=== PATIENT | female | born 1965 | race Hispanic/Latino ===

== ENCOUNTER 2016-06-25 16:00 | Emergency (ER) | payer SELFPAY ==
[2016-06-25] MEDS ORDERED: D50W (25GM) IV ONE ×3 (16:06→17:00)
[2016-06-25] MEDS ORDERED: GLUCAGEN ONE (16:06)
[2016-06-25] MEDS ORDERED: ATIVAN ONE (16:19)
[2016-06-25] MEDS ORDERED: ATIVAN IV ONE (16:36)
[2016-06-25 17:11] VITALS: BP 148/88
--- NOTE | 2016-06-25 19:23 | Emergency Department Report ---
ED General Adult HPI - General Chief complaint: Hypoglycemia Stated complaint: AMS Time Seen by Provider: 06/25/16 19:15 Source: family Mode of arrival: Ambulatory Limitations: Altered Mental Status - History of Present Illness Initial comments: This is a pleasant 51-year-old female who was brought into the ED due to mental status changes. Her indicates that they were coming home from a podiatry appointment when the noted her to have somewhat tight position she took with her arms across her chest and she became nonverbal. She still had her eyes open but was not able to focus correctly on him nor respond to questions. He decided to drive directly to our ED. He wasn't patient was noted to have a blood sugar less than 40. She was an IV placed and was given 2 A of D50. She immediately had return to us her baseline. The patient indicates that she woke up earlier than typical this morning and had a early breakfast. She did not get out of the doctor's office still after 3 PM. She states that she feels this is reasonable Y she became hypoglycemic. She denies any complaints at this time. -: Sudden Severity scale (0 -10): 0 Improves with: other (d50) Worsens with: none Associated Symptoms: denies: chest pain, cough Treatments Prior to Arrival: none - Related Data Home Medications Medication Instructions Recorded Confirmed Last Taken carBAMazepine [TEGretol] 200 mg PO QAM 08/22/14 06/25/16 06/25/16 carBAMazepine [TEGretol] 400 mg PO HS 08/22/14 06/25/16 06/24/16 glyBURIDE [Diabeta] 10 mg PO QDAY 08/01/15 06/25/16 06/25/16 Insulin Aspart Protam & Aspart 20 unit SQ BIDDIAB 06/25/16 06/25/16 06/25/16 [Novolog Mix 70-30 Flexpen Syrn] Allergies Allergy/AdvReac Type Severity Reaction Status Date / Time codeine Allergy Unknown Verified 01/26/16 20:44 ED Review of Systems ROS: Stated complaint: AMS Other details as noted in HPI Comment: All other systems reviewed and negative Constitutional: denies: chills, fever Eyes: denies: eye pain, eye discharge, vision change ENT: denies: ear pain, throat pain Respiratory: denies: cough, shortness of breath, wheezing Cardiovascular: denies: chest pain, palpitations Endocrine: no symptoms reported Gastrointestinal: denies: abdominal pain, nausea, diarrhea Genitourinary: denies: urgency, dysuria, discharge Musculoskeletal: other (neuropathy of feet). denies: back pain, joint swelling , arthralgia Skin: denies: rash, lesions Neurological: denies: headache, weakness, paresthesias Psychiatric: denies: anxiety, depression Hematological/Lymphatic: denies: easy bleeding, easy bruising ED Past Medical Hx - Past Medical History Previous Medical History?: Yes Hx Hypertension: No Hx CVA: No Hx Heart Attack/AMI: No Hx Congestive Heart Failure: No Hx Diabetes: Yes Hx Deep Vein Thrombosis: No Hx Pulmonary Embolism: No Hx GERD: No Hx Liver Disease: No Hx Renal Disease: No Hx Sickle Cell Disease: No Hx Arthritis: No Hx Headaches / Migraines: No Hx Seizures: Yes Hx Kidney Stones: No Hx Psychiatric Treatment: No Hx Asthma: No Hx COPD: No Hx Tuberculosis: No Hx Dementia: No Hx HIV: No - Surgical History Past Surgical History?: Yes Hx Coronary Stent: No Hx Open Heart Surgery: No Hx Pacemaker: No Hx Internal Defibrillator: No Hx Cholecystectomy: No Hx Appendectomy: No Hx Breast Surgery: No Additional Surgical History: x 2 - Social History Smoking Status: Current Every Day Smoker Substance Use Type: Other - Medications Home Medications: Home Medications Medication Instructions Recorded Confirmed Last Taken Type carBAMazepine [TEGretol] 200 mg PO QAM 08/22/14 06/25/16 06/25/16 History carBAMazepine [TEGretol] 400 mg PO HS 08/22/14 06/25/16 06/24/16 History glyBURIDE [Diabeta] 10 mg PO QDAY 08/01/15 06/25/16 06/25/16 History Insulin Aspart Protam & Aspart 20 unit SQ BIDDIAB 06/25/16 06/25/16 06/25/16 History [Novolog Mix 70-30 Flexpen Syrn] ED Physical Exam - General Limitations: Altered Mental Status General appearance: alert, in no apparent distress - Head Head exam: Present: atraumatic, normocephalic - Eye Eye exam: Present: normal appearance, EOMI. Absent: scleral icterus - ENT ENT exam: Present: normal exam, normal orophraynx, mucous membranes moist - Neck Neck exam: Present: normal inspection, full ROM. Absent: tenderness, meningismus, lymphadenopathy - Respiratory Respiratory exam: Present: normal lung sounds bilaterally. Absent: respiratory distress, wheezes, rales - Cardiovascular Cardiovascular Exam: Present: regular rate, normal rhythm. Absent: systolic murmur, diastolic murmur, rubs, gallop - GI/Abdominal GI/Abdominal exam: Present: soft, normal bowel sounds. Absent: tenderness, guarding - Extremities Exam Extremities exam: Present: normal inspection. Absent: tenderness, pedal edema, calf tenderness - Back Exam Back exam: Present: normal inspection. Absent: tenderness, CVA tenderness (R), CVA tenderness (L) - Neurological Exam Neurological exam: Present: alert, oriented X3, normal gait - Psychiatric Psychiatric exam: Present: normal affect, normal mood - Skin Skin exam: Present: warm, dry, intact, normal color. Absent: rash ED Course Vital Signs 06/25/16 06/25/16 06/25/16 16:17 16:35 16:47 Temperature 98.5 F 98.9 F Pulse Rate 107 H 83 Respiratory 16 22 20 Rate Blood Pressure 140/61 Blood Pressure 150/79 [Left] O2 Sat by Pulse 100 100 Oximetry 06/25/16 17:09 Temperature Pulse Rate 81 Respiratory 16 Rate Blood Pressure Blood Pressure 148/88 [Left] O2 Sat by Pulse 97 Oximetry - Reevaluation(s) Reevaluation #1: 06/25/16 23:39 Patient has had a meal. She's had her sugars checked. They continue to be appropriate. She's been here for several hours now. I feel that she'll continue to be appropriate. The story sounds very consistent with hypoglycemia due to poor caloric intake from prolonged period of fasting. I did encourage her to continue on the same dose of glyburide but just to be sure that she is taking her meals regularly. Patient agrees to do this otherwise stable for home she will be with her julieta. Critical care attestation.: If time is entered above; I have spent that time in minutes in the direct care of this critically ill patient, excluding procedure time. ED Disposition Clinical Impression: Hypoglycemia Disposition: DISCHARGED TO HOME OR SELFCARE Is pt being admited?: No Does the pt Need Aspirin: No Condition: Stable Instructions: Diabetic Hypoglycemia (ED) Additional Instructions: Continue with your current glyburide dose. Eat your meals regularly. Return if worsening. Referrals: PRIMARY CARE, [Primary Care Provider] - 3-5 Days Time of Disposition: 19:24
== END 2016-06-25 20:30 | disposition home or self-care (01) ==
LOC: ED 16:00
DX: E11.649 Type 2 diabetes mellitus with hypoglycemia without coma (principal); R56.9 Unspecified convulsions; F17.200 Nicotine dependence, unspecified, uncomplicated; Z88.5 Allergy status to narcotic agent
CPT/HCPCS: 82962; 96374; 96375; 99283; J2060; J1610

== ENCOUNTER 2016-11-20 22:39 | Emergency (ER) | payer SELFPAY ==
[2016-11-21 03:20] LABS: Creatine Kinase MB 2.9 ng/mL (0.0-4.0)
[2016-11-21 03:21] LABS: Anion Gap 20 mmol/L; BUN/Creatinine Ratio 17.77; Blood Urea Nitrogen 16 mg/dL (7-17); Calcium 9.3 mg/dL (8.4-10.2); Carbon Dioxide 27 mmol/L (22-30); Chloride 96.8 mmol/L (98-107); Creatine Kinase 99 units/L (30-135); Glucose 182 mg/dL (65-100); Potassium 4.2 mmol/L (3.6-5.0); Sodium 140 mmol/L (137-145)
[2016-11-21 03:23] LABS: Eosinophils % (Auto) 0.2 % (0.0-4.3); Hematocrit 47.9 % (30.3-42.9); Hemoglobin 16.7 gm/dl (10.1-14.3); Mean Corpuscular HGB Conc 35 % (30-34); Mean Corpuscular Hemoglobin 34 pg (28-32); Mean Corpuscular Volume 98 fl (79-97); Platelet Count 152 K/mm3 (140-440); Red Blood Count 4.88 M/mm3 (3.65-5.03); Red Cell Distribution Width 13.4 % (13.2-15.2); White Blood Count 8.9 K/mm3 (4.5-11.0)
[2016-11-21 03:29] VITALS: BP 143/76
[2016-11-21 03:29] LABS: INR 0.94 (0.87-1.13)
[2016-11-21 03:30] LABS: Partial Thromboplastin Time 31.6 Sec. (24.2-36.6)
[2016-11-21 03:54] LABS: Erythrocyte Sedimentation Rate TNR mm/Hr (0-20)
[2016-11-21] MEDS ORDERED: NEURONTIN PO ONE (06:35)
[2016-11-21] MEDS ORDERED: TORADOL IM ONE (06:35)
--- NOTE | 2016-11-21 07:07 | Emergency Department Report ---
ED Lower Extremity HPI - General Chief Complaint: Extremity Problem,Nontraumatic Stated Complaint: NUMBNESS IN LEGS AND FEET Time Seen by Provider: 11/21/16 06:16 Source: patient Mode of arrival: Ambulatory Limitations: No Limitations - History of Present Illness Initial Comments: 51-year-old female with a past medical history of seizures and diabetes presents to the hospital complaints of bilateral feet pain times greater than one month. Pain described as a numbness radius extensor tendon intensity. Worse with palpation. No alleviating factors. Patient denies a previous diagnosis of neuropathy. No recent trauma, fevers, redness, or warmth reported. PMD: [facility] - Related Data Home Medications Medication Instructions Recorded Confirmed Last Taken carBAMazepine [TEGretol] 200 mg PO QAM 08/22/14 06/25/16 06/25/16 carBAMazepine [TEGretol] 400 mg PO HS 08/22/14 06/25/16 06/24/16 glyBURIDE [Diabeta] 10 mg PO QDAY 08/01/15 06/25/16 06/25/16 Insulin Aspart Protam & Aspart 20 unit SQ BIDDIAB 06/25/16 06/25/16 06/25/16 [Novolog Mix 70-30 Flexpen Syrn] Previous Rx's Medication Instructions Recorded Last Taken Type Gabapentin [Neurontin] 300 mg PO Q8HR #90 capsule 11/21/16 Unknown Rx Naproxen [Naprosyn TAB] 375 mg PO BID #30 tablet 11/21/16 Unknown Rx Allergies Allergy/AdvReac Type Severity Reaction Status Date / Time codeine Allergy Unknown Verified 01/26/16 20:44 ED Review of Systems ROS: Stated complaint: NUMBNESS IN LEGS AND FEET Other details as noted in HPI Comment: All other systems reviewed and negative Other: Constitutional: No fevers chills Eyes: No eye pain visual changes or discharge ENT: No ear pain or throat pain Neck: Denies pain Respiratory: Denies cough wheezing shortness of breath Cardiovascular: Denies chest pain, palpitations, syncope GI: Denies abdominal pain, nausea, vomiting, diarrhea : Denies dysuria Musculoskeletal: as per hpi Skin: Denies rash, lesions, erythema Neurologic: Denies headache, weakness Psychiatric: Denies suicidal ideation, hallucinations ED Past Medical Hx - Past Medical History Hx Hypertension: No Hx CVA: No Hx Heart Attack/AMI: No Hx Congestive Heart Failure: No Hx Diabetes: Yes Hx Deep Vein Thrombosis: No Hx Pulmonary Embolism: No Hx GERD: No Hx Liver Disease: No Hx Renal Disease: No Hx Sickle Cell Disease: No Hx Arthritis: No Hx Headaches / Migraines: No Hx Seizures: Yes Hx Kidney Stones: No Hx Psychiatric Treatment: No Hx Asthma: No Hx COPD: No Hx Tuberculosis: No Hx Dementia: No Hx HIV: No - Surgical History Hx Coronary Stent: No Hx Open Heart Surgery: No Hx Pacemaker: No Hx Internal Defibrillator: No Hx Cholecystectomy: No Hx Appendectomy: No Hx Breast Surgery: No Additional Surgical History: x 2 - Social History Smoking Status: Current Every Day Smoker Substance Use Type: None - Medications Home Medications: Home Medications Medication Instructions Recorded Confirmed Last Taken Type carBAMazepine [TEGretol] 200 mg PO QAM 08/22/14 06/25/16 06/25/16 History carBAMazepine [TEGretol] 400 mg PO HS 08/22/14 06/25/16 06/24/16 History glyBURIDE [Diabeta] 10 mg PO QDAY 08/01/15 06/25/16 06/25/16 History Insulin Aspart Protam & Aspart 20 unit SQ BIDDIAB 06/25/16 06/25/16 06/25/16 History [Novolog Mix 70-30 Flexpen Syrn] Gabapentin [Neurontin] 300 mg PO Q8HR #90 capsule 11/21/16 Unknown Rx Naproxen [Naprosyn TAB] 375 mg PO BID #30 tablet 11/21/16 Unknown Rx ED Physical Exam - General Limitations: No Limitations - Other Other exam information: General: No limitations, patient is alert in no acute distress Head exam: Atraumatic, normocephalic Eyes exam: Normal appearance, pupils equal reactive to light, extraocular movements intact ENT: Moist mucous membrane, normal oropharynx Neck exam: Normal inspection, full range of motion, no meningismus nontender Respiratory exam: Clear to auscultation bilateral, no wheezes, rales, crackles Cardiovascular: Normal rate and rhythm, normal heart sounds Abdomen: Soft, nondistended, and nontender, with normal bowel sounds, no rebound, or guarding Extremity: Full range of motion normal inspection no deformity, 2+ DP pulse, pain to palpation to right foot diffusely with palpation. No calf tenderness or edema Back: Normal Inspection, full range of motion, no tenderness Neurologic: Alert, oriented x3, cranial nerves intact, no motor or sensory deficit Psychiatric: normal affect, normal mood Skin: Warm, dry, intact ED Course Vital Signs 11/20/16 11/21/16 11/21/16 22:52 03:28 06:00 Temperature 98.4 F Pulse Rate 81 78 Respiratory 16 18 18 Rate Blood Pressure 129/76 143/76 O2 Sat by Pulse 93 98 Oximetry ED Lower Extremity MDM - Lab Data Result diagrams: 11/21/16 02:35 11/21/16 02:35 Lab Results 11/21/16 11/21/16 11/21/16 Range/Units 02:35 02:35 02:35 WBC 8.9 (4.5-11.0) K/mm3 RBC 4.88 (3.65-5.03) M/mm3 Hgb 16.7 H (10.1-14.3) gm/dl Hct 47.9 H (30.3-42.9) % MCV 98 H (79-97) fl MCH 34 H (28-32) pg MCHC 35 H (30-34) % RDW 13.4 (13.2-15.2) % Plt Count 152 (140-440) K/mm3 Lymph % (Auto) 28.8 (13.4-35.0) % Starke % (Auto) 7.2 (0.0-7.3) % Eos % (Auto) 0.2 (0.0-4.3) % Baso % (Auto) 1.0 (0.0-1.8) % Lymph # 2.6 (1.2-5.4) K/mm3 Starke # 0.6 (0.0-0.8) K/mm3 Eos # 0.0 (0.0-0.4) K/mm3 Baso # 0.1 (0.0-0.1) K/mm3 Seg Neutrophils % 62.8 (40.0-70.0) % Seg Neutrophils # 5.6 (1.8-7.7) K/mm3 ESR TNR PT (12.2-14.9) Sec. INR (0.87-1.13) APTT (24.2-36.6) Sec. Sodium 140 (137-145) mmol/L Potassium 4.2 (3.6-5.0) mmol/L Chloride 96.8 L (98-107) mmol/L Carbon Dioxide 27 (22-30) mmol/L Anion Gap 20 mmol/L BUN 16 (7-17) mg/dL Creatinine 0.9 (0.7-1.2) mg/dL Estimated GFR > 60 ml/min BUN/Creatinine Ratio 17.77 % Glucose 182 H (65-100) mg/dL Lactic Acid 1.50 (0.7-2.0) mmol/L Calcium 9.3 (8.4-10.2) mg/dL Total Creatine Kinase 99 (30-135) units/L CK-MB (CK-2) 2.9 (0.0-4.0) ng/mL CK-MB (CK-2) Rel Index 2.9 (0-4) C-Reactive Protein 1.90 H (0.00-1.30) mg/dL NT-Pro-B Natriuret Pep 64.77 (0-900) pg/mL 11/21/16 Range/Units 02:35 WBC (4.5-11.0) K/mm3 RBC (3.65-5.03) M/mm3 Hgb (10.1-14.3) gm/dl Hct (30.3-42.9) % MCV (79-97) fl MCH (28-32) pg MCHC (30-34) % RDW (13.2-15.2) % Plt Count (140-440) K/mm3 Lymph % (Auto) (13.4-35.0) % Starke % (Auto) (0.0-7.3) % Eos % (Auto) (0.0-4.3) % Baso % (Auto) (0.0-1.8) % Lymph # (1.2-5.4) K/mm3 Starke # (0.0-0.8) K/mm3 Eos # (0.0-0.4) K/mm3 Baso # (0.0-0.1) K/mm3 Seg Neutrophils % (40.0-70.0) % Seg Neutrophils # (1.8-7.7) K/mm3 ESR PT 12.5 (12.2-14.9) Sec. INR 0.94 (0.87-1.13) APTT 31.6 (24.2-36.6) Sec. Sodium (137-145) mmol/L Potassium (3.6-5.0) mmol/L Chloride (98-107) mmol/L Carbon Dioxide (22-30) mmol/L Anion Gap mmol/L BUN (7-17) mg/dL Creatinine (0.7-1.2) mg/dL Estimated GFR ml/min BUN/Creatinine Ratio % Glucose (65-100) mg/dL Lactic Acid (0.7-2.0) mmol/L Calcium (8.4-10.2) mg/dL Total Creatine Kinase (30-135) units/L CK-MB (CK-2) (0.0-4.0) ng/mL CK-MB (CK-2) Rel Index (0-4) C-Reactive Protein (0.00-1.30) mg/dL NT-Pro-B Natriuret Pep (0-900) pg/mL - Medical Decision Making I suspect the patient has diabetic neuropathy since she complains of bilateral foot pain that has been spreading caudally. Patient will be prescribed Neurontin and then inserted for pain. Outpatient follow-up for be encouraged - Differential Diagnosis PAD, PVD, neuropathy, radiculopathy Critical Care Time: No Critical care attestation.: If time is entered above; I have spent that time in minutes in the direct care of this critically ill patient, excluding procedure time. ED Disposition Clinical Impression: Diabetic neuropathy Disposition: DC-01 TO HOME OR SELFCARE Is pt being admited?: No Does the pt Need Aspirin: No Condition: Stable Instructions: Diabetes Mellitus Type 2 in Adults (ED), Diabetic Neuropathy (ED) Additional Instructions: Take the medication as prescribed. Follow up with her doctor for further management. Return if symptoms worsen. Prescriptions: Gabapentin [Neurontin] 300 mg PO Q8HR #90 capsule Naproxen [Naprosyn TAB] 375 mg PO BID #30 tablet Referrals: PRIMARY CARE, [Primary Care Provider] - 3-5 Days Time of Disposition: 07:13
== END 2016-11-21 08:12 | disposition home or self-care (01) ==
LOC: ED 22:39
DX: E11.40 Type 2 diabetes mellitus with diabetic neuropathy, unspecified (principal); F17.200 Nicotine dependence, unspecified, uncomplicated; Z79.4 Long term (current) use of insulin; Z88.6 Allergy status to analgesic agent
CPT/HCPCS: 36415; 80048; 82140; 82550; 82553; 83880; 85025; 85610; 85652; 85730; 86140; 96372; 99283; J1885

== ENCOUNTER 2018-11-08 18:28 | Observation (INO) | payer OTHER ==
[2018-11-08 19:54] LABS: Basophils # (Auto) 0.1 K/mm3 (0.0-0.1); Basophils % (Auto) 1.3 % (0.0-1.8); Eosinophils % (Auto) 0.9 % (0.0-4.3); Hematocrit 43.7 % (30.3-42.9); Lymphocytes # (Auto) 1.5 K/mm3 (1.2-5.4); Lymphocytes % (Auto) 37.8 % (13.4-35.0); Mean Corpuscular HGB Conc 34 % (30-34); Mean Corpuscular Volume 101 fl (79-97); Monocytes # (Auto) 0.3 K/mm3 (0.0-0.8); Monocytes % (Auto) 8.5 % (0.0-7.3); Platelet Count 144 K/mm3 (140-440); Red Blood Count 4.31 M/mm3 (3.65-5.03); Red Cell Distribution Width 13.5 % (13.2-15.2)
[2018-11-08 20:23] LABS: Alanine Aminotransferase 21 units/L (7-56); Albumin 3.5 g/dL (3.9-5); BUN/Creatinine Ratio 14; Blood Urea Nitrogen 14 mg/dL (7-17); Calcium 8.6 mg/dL (8.4-10.2); Hemolysis Index 18
--- NOTE | 2018-11-08 20:37 | Emergency Department Report ---
HPI - General Chief Complaint: Altered Mental Status Time Seen by Provider: 11/08/18 18:58 - HPI HPI: 53-year-old female presents to the emergency department by EMS from home with what appears to be altered mental status and a syncopal episode. She has a past medical history of non-insulin depended diabetes, hyperlipidemia, hypertension, chronic osteoarthritis and seizures. The patient currently is living with her ex-. Apparently the patient went into her home and was saying that she wanted to go to [facility] when she passed out and became unresponsive. EMS arrived and gave the patient 2 mg of Narcan and the patient appeared to have some type of a response but does go back to sleep. Since my examination in the emergency department, the patient is easily arousable but does have some confusion. She is currently AAO [address] but not time. She is a very poor historian and some of this information and has also be en provided by her daughter, who is now at bedside. The daughter says that she will sometimes have some "blackout spells." ED Past Medical Hx - Past Medical History Previous Medical History?: Yes Hx Hypertension: No Hx CVA: No Hx Heart Attack/AMI: No Hx Congestive Heart Failure: No Hx Diabetes: Yes Hx Deep Vein Thrombosis: No Hx Pulmonary Embolism: No Hx GERD: No Hx Liver Disease: No Hx Renal Disease: No Hx Sickle Cell Disease: No Hx Arthritis: No Hx Headaches / Migraines: No Hx Seizures: Yes Hx Kidney Stones: No Hx Psychiatric Treatment: No Hx Asthma: No Hx COPD: No Hx Tuberculosis: No Hx Dementia: No Hx HIV: No - Surgical History Hx Coronary Stent: No Hx Open Heart Surgery: No Hx Pacemaker: No Hx Internal Defibrillator: No Hx Cholecystectomy: No Hx Appendectomy: No Hx Breast Surgery: No Additional Surgical History: x 2 - Social History Smoking Status: Current Every Day Smoker Substance Use Type: None - Medications Home Medications: Home Medications Medication Instructions Recorded Confirmed Last Taken Type carBAMazepine [TEGretol] 200 mg PO QAM 08/22/14 06/25/16 06/25/16 History carBAMazepine [TEGretol] 400 mg PO HS 08/22/14 06/25/16 06/24/16 History glyBURIDE [Diabeta] 10 mg PO QDAY 08/01/15 06/25/16 06/25/16 History Insulin Aspart Protam & Aspart 20 unit SQ BIDDIAB 06/25/16 06/25/16 06/25/16 History [Novolog Mix 70-30 Flexpen Syrn] Gabapentin [Neurontin] 300 mg PO Q8HR #90 capsule 11/21/16 Unknown Rx Naproxen [Naprosyn TAB] 375 mg PO BID #30 tablet 11/21/16 Unknown Rx Naproxen 500 mg PO Q12H PRN #20 tablet 08/02/18 Unknown Rx ED Review of Systems ROS: Stated complaint: AMS Other details as noted in HPI Comment: Unobtainable due to pts medical conditions Cardiovascular: syncope Physical Exam - Physical Exam Vital Signs: Vital Signs 11/08/18 11/08/18 18:39 18:52 Temperature 97.7 F Pulse Rate 74 79 Respiratory 16 12 Rate Blood Pressure 136/77 Blood Pressure 114/78 [Left] O2 Sat by Pulse 94 94 Oximetry Physical Exam: GENERAL: The patient is well-developed well-nourished. HENT: Normocephalic. Atraumatic. Patient has moist mucous membranes. EYES: Extraocular motions are intact. Pupils equal reactive to light bilaterally. NECK: Supple. Trachea is midline. CHEST/LUNGS: Clear to auscultation. There is no respiratory distress noted. HEART/CARDIOVASCULAR: Regular. There is no tachycardia. There is no murmur. ABDOMEN: Abdomen is soft, nontender. Patient has normal bowel sounds. There is no abdominal distention. SKIN: Skin is warm and dry. NEURO: Patient is sleepy but is easily arousable. Once awake she is cooperative but confused. The patient has normal speech. CN II - XII grossly intact. MUSCULOSKELETAL: There is no tenderness or deformity. There is no evidence of acute injury. PSYCH: Patient is emotionally labile. ED Course Vital Signs 11/08/18 11/08/18 18:39 18:52 Temperature 97.7 F Pulse Rate 74 79 Respiratory 16 12 Rate Blood Pressure 136/77 Blood Pressure 114/78 [Left] O2 Sat by Pulse 94 94 Oximetry ED Medical Decision Making - Lab Data Result diagrams: 11/08/18 19:39 11/08/18 19:39 - EKG Data -: EKG Interpreted by Me EKG shows normal: sinus rhythm (APC), axis, intervals, QRS complexes (Low voltage), ST-T waves Rate: normal - EKG Data When compared to previous EKG there are: previous EKG unavailable Interpretation: normal EKG (with PACs and low voltage) - Radiology Data Radiology results: report reviewed, image reviewed interpreted by me: X-ray of the sacrum and coccyx does not show any fracture, dislocation or any acute process. CT HEAD WITHOUT CONTRAST HISTORY: Altered mental status COMPARISON: None TECHNIQUE: CT imaging of the head was performed in the axial, sagittal, and coronal projections and bone algorithm in axial projection in the soft tissue algorithm. All CT scans at this location are performed using CT dose reduction for ALARA by means of automated exposure control. CONTRAST: None. FINDINGS: Cerebral and Cerebellar Hemispheres: No evidence of mass or mass effect. No midline shift. No acute hemorrhage. No acute cortical infarction. No extra-axial fluid collection. Ventricles: Normal in size and configuration for age. Osseous Structures: No significant abnormality. Visualized Paranasal Sinuses: No significant abnormality. Additional Findings: None IMPRESSION: 1. No acute intracranial abnormality. - Medical Decision Making This patient presents to the emergency department after having a syncopal and unresponsive episode. Since being in the emergency department, the patient does appear sleepy and altered but is easily arousable. The patient is cooperative. She does not appear to have any motor or sensory deficits and her cranial nerves are intact. CT scan of the head without contrast did not show any bleed, shift, mass, ischemia, or any other acute process. The patient later started complaining of some tailbone pain so an x-ray was done of the sacrum and coccyx that also did not show any fracture, dislocation, or any other acute process. The patient's labs are essentially unremarkable and do not show any etiology of the patient's symptoms. Family says there has been some recent decline in her mental and physical health. They also informed me that there could be some type of an emotional or psychiatric component as she is currently going through a separation/divorce and she is still living with her ex-, who is currently in a new relationship. The patient does display some emotional lability and will start crying very easily. Her vital signs and stable throughout her ED course. The patient will be admitted to the hospital for further evaluation and treatment and was accepted for admission by the hospitalist, Dr. Hu. - Differential Diagnosis TIA, CVA, Substance abuse, Dysrythmia, Conversion Disorder Critical Care Time: No Critical care attestation.: If time is entered above; I have spent that time in minutes in the direct care of this critically ill patient, excluding procedure time. ED Disposition Clinical Impression: Encephalopathy Altered mental status Qualifiers: Altered mental status type: unspecified Qualified Code(s): R41.82 - Altered mental status, unspecified Syncope Qualifiers: Syncope type: unspecified Qualified Code(s): R55 - Syncope and collapse Disposition: DC-09 OP ADMIT IP TO THIS HOSP Is pt being admited?: Yes Condition: Fair Time of Disposition: 00:51
--- NOTE | 2018-11-08 20:44 | Cat Scan Report ---
CT HEAD WITHOUT CONTRAST HISTORY: Altered mental status COMPARISON: None TECHNIQUE: CT imaging of the head was performed in the axial, sagittal, and coronal projections and bone algori thm in axial projection in the soft tissue algorithm. All CT scans at this location are performed using CT dose reduction for ALARA by means of automated e xposure control. CONTRAST: None. FINDINGS: Cerebral and Cerebellar Hemispheres: No evidence of mass or mass effect. No midline shift. No acute hemorrhage. No acute cortical infarction. No extra-axial fluid collection. Ventricles: Normal in size and configuration for age. Osseous Structures: No significant abnormality. Visualized Paranasal Sinuses: No significant abnormality. Additional Findings: None IMPRESSION: 1. No acute intracranial abnormality. NOTE: Acute infarct may not be visible by noncontrast CT. Signer Name: William Trevino MD Signed: 11/08/2018 8:39 PM Workstation Name: [id number]
[2018-11-08 21:18] LABS: Bilirubin,Urine NEG (Negative); Blood,Urine MOD (Negative); Color,Urine Yellow (Yellow); Mucus,Urine FEW /HPF; Protein,Urine <15 mg/dL mg/dL (Negative); Urobilinogen,Urine < 2.0 mg/dL (<2.0)
[2018-11-08 21:19] LABS: Amphetamine Screen,Urine PRESUMPTIVE NEGATIVE; Benzodiazepines Screen,Urine PRESUMPTIVE NEGATIVE; Cannabinoid Screen,Urine PRESUMPTIVE NEGATIVE; Cocaine Screen,Urine PRESUMPTIVE NEGATIVE; Methadone Screen,Urine PRESUMPTIVE NEGATIVE; Opiate Screen,Urine PRESUMPTIVE NEGATIVE
[2018-11-08] MEDS ORDERED: ZOFRAN IV PRN (22:30)
[2018-11-08] MEDS ORDERED: TYLENOL PO PRN (22:30)
[2018-11-08] MEDS ORDERED: SODIUM CHLORIDE FLUSH SYRINGE 10 ML IV PRN (22:30)
--- NOTE | 2018-11-08 22:45 | History and Physical Report ---
History of Present Illness Date of examination: 11/08/18 Chief complaint: Syncope per report History of present illness: Patient is a 53-year-old female with history of diabetes mellitus type 2 and seizure disorder who was brought to the ED via EMS on account of a syncopal episode. Of note, patient does not remember what happened or why she's here and was unable to give a good history. It was reported that patient had a witnessed syncope by family members who called 911. No reported history of seizure activity. When EMS arrived, the patient was given 2 mg of Narcan and she appeared to have some type of a response but did go back to sleep. She complained of pain in her feet and and buttock. She denies chest pain, sob, cough, headaches, fever or chills. Past History Past Medical History: arthritis, diabetes, hypertension, hyperlipidemia, seizures Past Surgical History: , Other (clavicular surgery) Social history: smoking (she has 20 years history of cigarette smoking. She currently smokes 1 pack per day. She denies alcohol or illicit drug use) Family history: other (A brother from suicide. No known family history of hypertension, diabetes or heart disease) Medications and Allergies Allergies Allergy/AdvReac Type Severity Reaction Status Date / Time codeine Allergy Unknown Verified 01/26/16 20:44 Home Medications Medication Instructions Recorded Confirmed Last Taken Type carBAMazepine [TEGretol] 200 mg PO QAM 08/22/14 06/25/16 06/25/16 History carBAMazepine [TEGretol] 400 mg PO HS 08/22/14 06/25/16 06/24/16 History glyBURIDE [Diabeta] 10 mg PO QDAY 08/01/15 06/25/16 06/25/16 History Insulin Aspart Protam & Aspart 20 unit SQ BIDDIAB 06/25/16 06/25/16 06/25/16 History [Novolog Mix 70-30 Flexpen Syrn] Gabapentin [Neurontin] 300 mg PO Q8HR #90 capsule 11/21/16 Unknown Rx Naproxen [Naprosyn TAB] 375 mg PO BID #30 tablet 11/21/16 Unknown Rx Naproxen 500 mg PO Q12H PRN #20 tablet 08/02/18 Unknown Rx Active Meds: Active Medications Acetaminophen (Tylenol) 650 mg PO Q4H PRN PRN Reason: Pain MILD(1-3)/Fever >100.5/HILL Enoxaparin Sodium (Lovenox) 40 mg SUB-Q QDAY REYES Sodium Chloride (Nacl 0.9% 1000 Ml) 1,000 mls @ 100 mls/hr IV DIRECT REYES Ondansetron HCl (Zofran) 4 mg IV Q8H PRN PRN Reason: Nausea And Vomiting Sodium Chloride (Sodium Chloride Flush Syringe 10 Ml) 10 ml IV BID REYES Sodium Chloride (Sodium Chloride Flush Syringe 10 Ml) 10 ml IV PRN PRN PRN Reason: LINE FLUSH Review of Systems All systems: negative (all other systems reviewed with the patient and are negative) Exam - Constitutional Vitals: Temp Pulse Resp BP Pulse Ox 97.7 F 79 12 114/78 94 11/08/18 18:39 11/08/18 18:52 11/08/18 18:52 11/08/18 18:52 11/08/18 18:52 General appearance: Present: no acute distress, well-nourished, other (Alert and oriented to person and time only) - EENT Eyes: Present: PERRL, EOM intact ENT: hearing intact, clear oral mucosa - Neck Neck: Present: supple, normal ROM - Respiratory Respiratory effort: normal Respiratory: bilateral: CTA - Cardiovascular Rhythm: regular Heart Sounds: Present: S1 & S2. Absent: rub, click - Extremities Extremities: pulses symmetrical, No edema Peripheral Pulses: within normal limits - Abdominal General gastrointestinal: Present: soft, non-tender, non-distended, normal bowel sounds Female genitourinary: Present: normal - Integumentary Integumentary: Present: clear, warm, dry - Musculoskeletal Musculoskeletal: gait normal, strength equal bilaterally - Psychiatric Psychiatric: appropriate mood/affect, intact judgment & insight - Neurologic Neurologic: CNII-XII intact, moves all extremities Results - Labs CBC & Chem 7: 11/08/18 19:39 11/08/18 19:39 Labs: Laboratory Last Values WBC 3.9 K/mm3 (4.5-11.0) L 11/08/18 19:39 RBC 4.31 M/mm3 (3.65-5.03) 11/08/18 19:39 Hgb 15.0 gm/dl (10.1-14.3) H 11/08/18 19:39 Hct 43.7 % (30.3-42.9) H 11/08/18 19:39 MCV 101 fl (79-97) H 11/08/18 19:39 MCH 35 pg (28-32) H 11/08/18 19:39 MCHC 34 % (30-34) 11/08/18 19:39 RDW 13.5 % (13.2-15.2) 11/08/18 19:39 Plt Count 144 K/mm3 (140-440) 11/08/18 19:39 Lymph % (Auto) 37.8 % (13.4-35.0) H 11/08/18 19:39 [place] % (Auto) 8.5 % (0.0-7.3) H 11/08/18 19:39 Eos % (Auto) 0.9 % (0.0-4.3) 11/08/18 19:39 Baso % (Auto) 1.3 % (0.0-1.8) 11/08/18 19:39 Lymph # 1.5 K/mm3 (1.2-5.4) 11/08/18 19:39 [place] # 0.3 K/mm3 (0.0-0.8) 11/08/18 19:39 Eos # 0.0 K/mm3 (0.0-0.4) 11/08/18 19:39 Baso # 0.1 K/mm3 (0.0-0.1) 11/08/18 19:39 Seg Neutrophils % 51.5 % (40.0-70.0) 11/08/18 19:39 Seg Neutrophils # 2.0 K/mm3 (1.8-7.7) 11/08/18 19:39 Sodium 140 mmol/L (137-145) 11/08/18 19:39 Potassium 3.8 mmol/L (3.6-5.0) 11/08/18 19:39 Chloride 107.7 mmol/L (98-107) H 11/08/18 19:39 Carbon Dioxide 22 mmol/L (22-30) 11/08/18 19:39 14 mmol/L 11/08/18 19:39 BUN 14 mg/dL (7-17) 11/08/18 19:39 1.0 mg/dL (0.7-1.2) 11/08/18 19:39 Estimated GFR 58 ml/min 11/08/18 19:39 14 % 11/08/18 19:39 Glucose 127 mg/dL (65-100) H 11/08/18 19:39 Calcium 8.6 mg/dL (8.4-10.2) 11/08/18 19:39 0.30 mg/dL (0.1-1.2) 11/08/18 19:39 AST 17 units/L (5-40) 11/08/18 19:39 ALT 21 units/L (7-56) 11/08/18 19:39 144 units/L (35-129) H 11/08/18 19:39 58.0 umol/L (25-60) 11/08/18 19:39 < 0.010 ng/mL (0.00-0.029) 11/08/18 19:39 6.5 g/dL (6.3-8.2) 11/08/18 19:39 3.5 g/dL (3.9-5) L 11/08/18 19:39 1.2 % 11/08/18 19:39 TSH 0.505 mlU/mL (0.270-4.200) 11/08/18 19:39 Yellow (Yellow) 11/08/18 20:20 Clear (Clear) 11/08/18 20:20 5.0 (5.0-7.0) 11/08/18 20:20 Ur Specific [place] 1.009 (1.003-1.030) 11/08/18 20:20 <15 mg/dl mg/dL (Negative) 11/08/18 20:20 Neg mg/dL (Negative) 11/08/18 20:20 Neg mg/dL (Negative) 11/08/18 20:20 Mod (Negative) 11/08/18 20:20 Neg (Negative) 11/08/18 20:20 Neg (Negative) 11/08/18 20:20 < 2.0 mg/dL (<2.0) 11/08/18 20:20 Ur Leukocyte Esterase Neg (Negative) 11/08/18 20:20 1.0 /HPF (0.0-6.0) 11/08/18 20:20 1.0 /HPF (0.0-6.0) 11/08/18 20:20 U Epithel Cells (Auto) 4.0 /HPF (0-13.0) 11/08/18 20:20 Few /HPF 11/08/18 20:20 Presumptive negative 11/08/18 20:20 Presumptive negative 11/08/18 20:20 Ur Barbiturates Screen Presumptive negative 11/08/18 20:20 Ur Phencyclidine Scrn Presumptive negative 11/08/18 20:20 Ur Amphetamines Screen Presumptive negative 11/08/18 20:20 U Benzodiazepines Scrn Presumptive negative 11/08/18 20:20 Presumptive negative 11/08/18 20:20 U Marijuana (THC) Screen Presumptive negative 11/08/18 20:20 Disclamer 11/08/18 20:20 Plasma/Serum Alcohol < 0.01 % (0-0.07) 11/08/18 19:39 - Imaging and Cardiology CT Scan - head: report reviewed Assessment and Plan Assessment and plan: Syncope and collapse -Exact cause unknown, may be seizure related -Further evaluation with duplex US and echocardiogram Elevated H/H -Likely hemoconcentration -We'll hydrate patient and monitor levels Mild Leukopenia -We'll monitor level Hypertension -Stable Seizure disorder -we'll resume home medications -Seizure precautions DM2 -Stable -On SSI Osteoarthritis -On PRN analgesics DVT prophylaxis with Lovenox Disposition: Patient will be placed in observation status with plan for discharge if pending tests are negative and pt is clinically stable Time spent: 38 minutes
--- NOTE | 2018-11-08 23:20 | XRay Report ---
SACRUM AND COCCYX 3 VIEWS INDICATION / CLINICAL INFORMATION: Fall with tailbone pain COMPARISON: None available. FINDINGS: BONES / JOINT(S): No acute fracture or subluxation. There is minimal lower lumbar spondylosis. The SI joints are normal. SOFT TISSUES: No significant abnormality. ADDITIONAL FINDINGS: None. IMPRESSION: No acute abnormality is identified. Signer Name: Juan Renteria MD Signed: 11/08/2018 11:16 PM Workstation Name: [id number]
[2018-11-08] MEDS ORDERED: D50W (25GM) Syringe IV PRN (23:41)
[2018-11-08] MEDS ORDERED: NACL 0.9% 1000 ML 1,000 ML IV ONE (23:44)
[2018-11-09] MEDS ORDERED: NACL 0.9% 1000 ML 1,000 ML ONE (00:05)
[2018-11-09] MEDS: TORADOL IV PRN ×2 (01:10→17:57)
[2018-11-09] MEDS: DIFLUCAN PO SCH ×2 (01:10→09:49)
[2018-11-09] MEDS: NACL 0.9% 1000 ML 1,000 ML IV SCH ×2 (01:50→21:23)
[2018-11-09 02:51] LABS: Hematocrit 44.5 % (30.3-42.9); Hemoglobin 15.4 gm/dl (10.1-14.3); Mean Corpuscular HGB Conc 35 % (30-34); Mean Corpuscular Volume 101 fl (79-97); Platelet Count 145 K/mm3 (140-440); Red Cell Distribution Width 13.3 % (13.2-15.2)
[2018-11-09 03:11] LABS: Chol/HDL Ratio 7.88 %
[2018-11-09] MEDS: HumaLOG SUB-Q SCH ×4 (07:57→22:17)
[2018-11-09] MEDS: LOVENOX SUB-Q SCH (09:49)
[2018-11-09] MEDS: SODIUM CHLORIDE FLUSH SYRINGE 10 ML IV SCH ×2 (09:50→22:22)
--- NOTE | 2018-11-09 10:11 | Vascular Lab Report ---
VL carotid duplex BILAT INDICATION / CLINICAL INFORMATION: syncope. COMPARISON: None available. FINDINGS: Only mild plaque formation is demonstrated at the carotid bifurcations. Velocity measurements and wav eform analysis indicate less than 50% stenosis of each internal carotid artery, according to massive criteria. Normal antegrade flow is demonstrated in both vertebral arteries. IMPRESSION: 1. No significant stenosis. Signer Name: Joey Marley MD Signed: 11/09/2018 10:07 AM Workstation Name: [id number]
--- NOTE | 2018-11-09 15:21 | Progress Note ---
Assessment and Plan - Patient Problems (1) Diabetes 1.5, managed as type 2 Current Visit: Yes Status: Acute Plan to address problem: Patient diabetes at present has good control on current insulin. We'll continue current medical therapy. (2) Diabetes Current Visit: Yes Status: Acute Plan to address problem: She is currently being treated with Humalog sliding scale insulin. Checks of been stable. (3) Syncope Current Visit: Yes Status: Acute Qualifiers: Syncope type: unspecified Qualified Code(s): R55 - Syncope and collapse Plan to address problem: Patient with syncopal episode. No prodromal symptoms. Exact etiology unknown at this particular time patient had echocardiogram ejection fraction 55-60%. Patient had carotid Doppler which were negative as well. Patient extensive blood workup to rule out dehydration anemia all negative. Etiology unknown appears to have resolved. No EKG changes. If patient stable in a.m. we'll anticipate discharge. Cardiology for event monitor. (4) Diabetic neuropathy Current Visit: Yes Status: Acute Plan to address problem: Resume gabapentin. (5) Hypertension Current Visit: Yes Status: Acute Plan to address problem: At present patient continues to have fair control of blood pressure. No medical management required at this time. (6) Degenerative joint disease Current Visit: Yes Status: Acute Plan to address problem: [id number] pain control. History Interval history: Patient 53 years old with a history of diabetes seizure disorder had episode of syncope. Apparently witnessed syncope. On name to determine whether this was seizure activity or not. Patient has not had any dizziness or any nausea vomiting no prodromal symptoms today. Hospitalist Physical - Constitutional Vitals: Temp Pulse Resp BP Pulse Ox 98.2 F 61 16 104/48 92 11/09/18 11:18 11/09/18 11:18 11/09/18 11:18 11/09/18 11:18 11/09/18 11:18 General appearance: Present: no acute distress, well-nourished, other (Alert and oriented to person and time only) - EENT Eyes: Present: PERRL, EOM intact ENT: hearing intact, clear oral mucosa, dentition normal, no oropharyngeal erythema, no poor dentition, no thrush - Neck Neck: Present: supple, normal ROM. Absent: enlarged thyroid, masses or JVD, cervical LAD - Respiratory Respiratory: bilateral: CTA - Cardiovascular Rhythm: regular - Extremities Extremities: no ischemia, pulses intact, pulses symmetrical, No edema, normal temperature, normal color Peripheral Pulses: within normal limits - Abdominal General gastrointestinal: soft, non-tender, non-distended, normal bowel sounds - Integumentary Integumentary: Present: clear, warm, dry - Psychiatric Psychiatric: appropriate mood/affect, intact judgment & insight, memory intact - Neurologic Neurologic: CNII-XII intact, moves all extremities Results - Labs CBC & Chem 7: 11/09/18 02:44 11/08/18 19:39 Labs: Laboratory Last Values WBC 4.4 K/mm3 (4.5-11.0) L 11/09/18 02:44 RBC 4.40 M/mm3 (3.65-5.03) 11/09/18 02:44 Hgb 15.4 gm/dl (10.1-14.3) H 11/09/18 02:44 Hct 44.5 % (30.3-42.9) H 11/09/18 02:44 MCV 101 fl (79-97) H 11/09/18 02:44 MCH 35 pg (28-32) H 11/09/18 02:44 MCHC 35 % (30-34) H 11/09/18 02:44 RDW 13.3 % (13.2-15.2) 11/09/18 02:44 Plt Count 145 K/mm3 (140-440) 11/09/18 02:44 Lymph % (Auto) 37.8 % (13.4-35.0) H 11/08/18 19:39 [place] % (Auto) 8.5 % (0.0-7.3) H 11/08/18 19:39 Eos % (Auto) 0.9 % (0.0-4.3) 11/08/18 19:39 Baso % (Auto) 1.3 % (0.0-1.8) 11/08/18 19:39 Lymph # 1.5 K/mm3 (1.2-5.4) 11/08/18 19:39 [place] # 0.3 K/mm3 (0.0-0.8) 11/08/18 19:39 Eos # 0.0 K/mm3 (0.0-0.4) 11/08/18 19:39 Baso # 0.1 K/mm3 (0.0-0.1) 11/08/18 19:39 Seg Neutrophils % 51.5 % (40.0-70.0) 11/08/18 19:39 Seg Neutrophils # 2.0 K/mm3 (1.8-7.7) 11/08/18 19:39 Sodium 140 mmol/L (137-145) 11/08/18 19:39 Potassium 3.8 mmol/L (3.6-5.0) 11/08/18 19:39 Chloride 107.7 mmol/L (98-107) H 11/08/18 19:39 Carbon Dioxide 22 mmol/L (22-30) 11/08/18 19:39 14 mmol/L 11/08/18 19:39 BUN 14 mg/dL (7-17) 11/08/18 19:39 1.0 mg/dL (0.7-1.2) 11/08/18 19:39 Estimated GFR 58 ml/min 11/08/18 19:39 14 % 11/08/18 19:39 Glucose 127 mg/dL (65-100) H 11/08/18 19:39 POC Glucose 128 (70-105) H 11/09/18 11:03 Calcium 8.6 mg/dL (8.4-10.2) 11/08/18 19:39 Magnesium 1.60 mg/dL (1.7-2.3) L 11/09/18 02:44 0.30 mg/dL (0.1-1.2) 11/08/18 19:39 AST 17 units/L (5-40) 11/08/18 19:39 ALT 21 units/L (7-56) 11/08/18 19:39 144 units/L (35-129) H 11/08/18 19:39 58.0 umol/L (25-60) 11/08/18 19:39 < 0.010 ng/mL (0.00-0.029) 11/09/18 02:44 6.5 g/dL (6.3-8.2) 11/08/18 19:39 3.5 g/dL (3.9-5) L 11/08/18 19:39 1.2 % 11/08/18 19:39 Triglycerides 312 mg/dL (2-149) H 11/09/18 02:44 Cholesterol 213 mg/dL (50-199) H 11/09/18 02:44 156 mg/dL (50-130) H 11/09/18 02:44 27 mg/dL (40-59) L 11/09/18 02:44 7.88 % 11/09/18 02:44 TSH 0.505 mlU/mL (0.270-4.200) 11/08/18 19:39 Yellow (Yellow) 11/08/18 20:20 Clear (Clear) 11/08/18 20:20 5.0 (5.0-7.0) 11/08/18 20:20 Ur Specific [place] 1.009 (1.003-1.030) 11/08/18 20:20 <15 mg/dl mg/dL (Negative) 11/08/18 20:20 Neg mg/dL (Negative) 11/08/18 20:20 Neg mg/dL (Negative) 11/08/18 20:20 Mod (Negative) 11/08/18 20:20 Neg (Negative) 11/08/18 20:20 Neg (Negative) 11/08/18 20:20 < 2.0 mg/dL (<2.0) 11/08/18 20:20 Ur Leukocyte Esterase Neg (Negative) 11/08/18 20:20 1.0 /HPF (0.0-6.0) 11/08/18 20:20 1.0 /HPF (0.0-6.0) 11/08/18 20:20 U Epithel Cells (Auto) 4.0 /HPF (0-13.0) 11/08/18 20:20 Few /HPF 11/08/18 20:20 Presumptive negative 11/08/18 20:20 Presumptive negative 11/08/18 20:20 Ur Barbiturates Screen Presumptive negative 11/08/18 20:20 Ur Phencyclidine Scrn Presumptive negative 11/08/18 20:20 Ur Amphetamines Screen Presumptive negative 11/08/18 20:20 U Benzodiazepines Scrn Presumptive negative 11/08/18 20:20 Presumptive negative 11/08/18 20:20 U Marijuana (THC) Screen Presumptive negative 11/08/18 20:20 Disclamer 11/08/18 20:20 Plasma/Serum Alcohol < 0.01 % (0-0.07) 11/08/18 19:39 - Imaging and Cardiology EKG: image reviewed CT Scan - head: report reviewed, image reviewed Venous US: other (carotid Doppler reviewed echocardiogram reviewed.) Active Medications - Current Medications Current Medications: Generic Name Dose Route Start Last Admin Trade Name Freq PRN Reason Stop Dose Admin Acetaminophen 650 mg 11/08/18 22:30 Tylenol PO Q4H PRN Pain MILD(1-3)/Fever >100.5/HILL Dextrose 50 ml 11/08/18 23:41 D50w (25gm) Syringe IV PRN PRN Hypoglycemia Enoxaparin Sodium 40 mg 11/09/18 10:00 11/09/18 09:49 Lovenox SUB-Q 40 mg QDAY REYES Administration Fluconazole 100 mg 11/09/18 00:13 11/09/18 09:49 Diflucan PO 11/16/18 00:12 100 mg QDAY REYES Administration Sodium Chloride 1,000 mls @ 100 mls/hr 11/08/18 23:00 11/09/18 01:50 Nacl 0.9% 1000 Ml IV 100 mls/hr DIRECT REYES Administration Insulin Human Lispro 0 unit 11/09/18 07:30 11/09/18 12:37 Humalog SUB-Q Not Given ACHS REYES Protocol Ketorolac Tromethamine 15 mg 11/08/18 23:42 11/09/18 01:10 Toradol IV 11/13/18 23:41 15 mg Q6H PRN Administration Pain, Mild (1-3) Ondansetron HCl 4 mg 11/08/18 22:30 Zofran IV Q8H PRN Nausea And Vomiting Sodium Chloride 10 ml 11/09/18 10:00 11/09/18 09:50 Sodium Chloride Flush Syringe 10 Ml IV 10 ml BID REYES Administration Sodium Chloride 10 ml 11/08/18 22:30 11/09/18 01:10 Sodium Chloride Flush Syringe 10 Ml IV 10 ml PRN PRN Administration LINE FLUSH
[2018-11-09] MEDS: CEPHULAC PO PRN ×2 (16:23→22:20)
[2018-11-10] MEDS: TORADOL IV PRN (05:18)
[2018-11-10] MEDS: NACL 0.9% 1000 ML 1,000 ML IV SCH (05:25)
[2018-11-10] MEDS: HumaLOG SUB-Q SCH ×3 (08:21→17:47)
[2018-11-10] MEDS: LOVENOX SUB-Q SCH (09:16)
[2018-11-10] MEDS: DIFLUCAN PO SCH (09:16)
[2018-11-10] MEDS: SODIUM CHLORIDE FLUSH SYRINGE 10 ML IV SCH (09:16)
--- NOTE | 2018-11-10 11:36 | Progress Note ---
Assessment and Plan Assessment and plan: 1) Diabetes 1.5, managed as type 2 Current Visit: Yes Status: Acute Plan to address problem: Patient diabetes at present has good control on current insulin. We'll continue current medical therapy. (2) Diabetes Current Visit: Yes Status: Acute Plan to address problem: She is currently being treated with Humalog sliding scale insulin. Checks of been stable. (3) Syncope Current Visit: Yes Status: Acute Qualifiers: Syncope type: unspecified Qualified Code(s): R55 - Syncope and collapse Plan to address problem: Patient with syncopal episode. No prodromal symptoms. Exact etiology unknown at this particular time patient had echocardiogram ejection fraction 55-60%. Patient had carotid Doppler which were negative as well. Patient extensive blood workup to rule out dehydration anemia all negative. Etiology unknown appears to have resolved. No EKG changes. If patient stable in a.m. we'll anticipate discharge. Cardiology for event monitor. (4) Diabetic neuropathy Current Visit: Yes Status: Acute Plan to address problem: Resume gabapentin. (5) Hypertension Current Visit: Yes Status: Acute Plan to address problem: At present patient continues to have fair control of blood pressure. No medical management required at this time. (6) Degenerative joint disease Current Visit: Yes Status: Acute Plan to address problem: [id number] pain control. Hospitalist Physical - Constitutional Vitals: Temp Pulse Resp BP Pulse Ox 98.2 F 53 L 18 130/59 92 11/10/18 04:22 11/10/18 04:22 11/10/18 04:22 11/10/18 04:22 11/10/18 04:22 General appearance: Present: no acute distress, well-nourished, other (Alert and oriented to person and time only) Results - Labs CBC & Chem 7: 11/09/18 02:44 11/08/18 19:39 Labs: Laboratory Last Values WBC 4.4 K/mm3 (4.5-11.0) L 11/09/18 02:44 RBC 4.40 M/mm3 (3.65-5.03) 11/09/18 02:44 Hgb 15.4 gm/dl (10.1-14.3) H 11/09/18 02:44 Hct 44.5 % (30.3-42.9) H 11/09/18 02:44 MCV 101 fl (79-97) H 11/09/18 02:44 MCH 35 pg (28-32) H 11/09/18 02:44 MCHC 35 % (30-34) H 11/09/18 02:44 RDW 13.3 % (13.2-15.2) 11/09/18 02:44 Plt Count 145 K/mm3 (140-440) 11/09/18 02:44 Lymph % (Auto) 37.8 % (13.4-35.0) H 11/08/18 19:39 [place] % (Auto) 8.5 % (0.0-7.3) H 11/08/18 19:39 Eos % (Auto) 0.9 % (0.0-4.3) 11/08/18 19:39 Baso % (Auto) 1.3 % (0.0-1.8) 11/08/18 19:39 Lymph # 1.5 K/mm3 (1.2-5.4) 11/08/18 19:39 [place] # 0.3 K/mm3 (0.0-0.8) 11/08/18 19:39 Eos # 0.0 K/mm3 (0.0-0.4) 11/08/18 19:39 Baso # 0.1 K/mm3 (0.0-0.1) 11/08/18 19:39 Seg Neutrophils % 51.5 % (40.0-70.0) 11/08/18 19:39 Seg Neutrophils # 2.0 K/mm3 (1.8-7.7) 11/08/18 19:39 Sodium 140 mmol/L (137-145) 11/08/18 19:39 Potassium 3.8 mmol/L (3.6-5.0) 11/08/18 19:39 Chloride 107.7 mmol/L (98-107) H 11/08/18 19:39 Carbon Dioxide 22 mmol/L (22-30) 11/08/18 19:39 14 mmol/L 11/08/18 19:39 BUN 14 mg/dL (7-17) 11/08/18 19:39 1.0 mg/dL (0.7-1.2) 11/08/18 19:39 Estimated GFR 58 ml/min 11/08/18 19:39 14 % 11/08/18 19:39 Glucose 127 mg/dL (65-100) H 11/08/18 19:39 POC Glucose 106 (70-105) H 11/10/18 07:47 Calcium 8.6 mg/dL (8.4-10.2) 11/08/18 19:39 Magnesium 1.60 mg/dL (1.7-2.3) L 11/09/18 02:44 0.30 mg/dL (0.1-1.2) 11/08/18 19:39 AST 17 units/L (5-40) 11/08/18 19:39 ALT 21 units/L (7-56) 11/08/18 19:39 144 units/L (35-129) H 11/08/18 19:39 58.0 umol/L (25-60) 11/08/18 19:39 < 0.010 ng/mL (0.00-0.029) 11/09/18 02:44 6.5 g/dL (6.3-8.2) 11/08/18 19:39 3.5 g/dL (3.9-5) L 11/08/18 19:39 1.2 % 11/08/18 19:39 Triglycerides 312 mg/dL (2-149) H 11/09/18 02:44 Cholesterol 213 mg/dL (50-199) H 11/09/18 02:44 156 mg/dL (50-130) H 11/09/18 02:44 27 mg/dL (40-59) L 11/09/18 02:44 7.88 % 11/09/18 02:44 TSH 0.505 mlU/mL (0.270-4.200) 11/08/18 19:39 Yellow (Yellow) 11/08/18 20:20 Clear (Clear) 11/08/18 20:20 5.0 (5.0-7.0) 11/08/18 20:20 Ur Specific [place] 1.009 (1.003-1.030) 11/08/18 20:20 <15 mg/dl mg/dL (Negative) 11/08/18 20:20 Neg mg/dL (Negative) 11/08/18 20:20 Neg mg/dL (Negative) 11/08/18 20:20 Mod (Negative) 11/08/18 20:20 Neg (Negative) 11/08/18 20:20 Neg (Negative) 11/08/18 20:20 < 2.0 mg/dL (<2.0) 11/08/18 20:20 Ur Leukocyte Esterase Neg (Negative) 11/08/18 20:20 1.0 /HPF (0.0-6.0) 11/08/18 20:20 1.0 /HPF (0.0-6.0) 11/08/18 20:20 U Epithel Cells (Auto) 4.0 /HPF (0-13.0) 11/08/18 20:20 Few /HPF 11/08/18 20:20 Presumptive negative 11/08/18 20:20 Presumptive negative 11/08/18 20:20 Ur Barbiturates Screen Presumptive negative 11/08/18 20:20 Ur Phencyclidine Scrn Presumptive negative 11/08/18 20:20 Ur Amphetamines Screen Presumptive negative 11/08/18 20:20 U Benzodiazepines Scrn Presumptive negative 11/08/18 20:20 Presumptive negative 11/08/18 20:20 U Marijuana (THC) Screen Presumptive negative 11/08/18 20:20 Disclamer 11/08/18 20:20 Plasma/Serum Alcohol < 0.01 % (0-0.07) 11/08/18 19:39 Active Medications - Current Medications Current Medications: Generic Name Dose Route Start Last Admin Trade Name Freq PRN Reason Stop Dose Admin Acetaminophen 650 mg 11/08/18 22:30 Tylenol PO Q4H PRN Pain MILD(1-3)/Fever >100.5/HILL Dextrose 50 ml 11/08/18 23:41 D50w (25gm) Syringe IV PRN PRN Hypoglycemia Enoxaparin Sodium 40 mg 11/09/18 10:00 11/10/18 09:16 Lovenox SUB-Q 40 mg QDAY REYES Administration Fluconazole 100 mg 11/09/18 00:13 11/10/18 09:16 Diflucan PO 11/16/18 00:12 100 mg QDAY REYES Administration Sodium Chloride 1,000 mls @ 100 mls/hr 11/08/18 23:00 11/10/18 05:25 Nacl 0.9% 1000 Ml IV 100 mls/hr DIRECT REYES Administration Insulin Human Lispro 0 unit 11/09/18 07:30 11/10/18 08:21 Humalog SUB-Q Not Given ACHS [facility] Protocol Ketorolac Tromethamine 15 mg 11/08/18 23:42 11/10/18 05:18 Toradol IV 11/13/18 23:41 15 mg Q6H PRN Administration Pain, Mild (1-3) Lactulose 20 gm 11/09/18 15:47 11/09/18 22:20 Cephulac PO 20 gm Q6H PRN Administration Constipation Ondansetron HCl 4 mg 11/08/18 22:30 11/09/18 17:04 Zofran IV 4 mg Q8H PRN Administration Nausea And Vomiting Sodium Chloride 10 ml 11/09/18 10:00 11/10/18 09:16 Sodium Chloride Flush Syringe 10 Ml IV 10 ml BID REYES Administration Sodium Chloride 10 ml 11/08/18 22:30 11/09/18 01:10 Sodium Chloride Flush Syringe 10 Ml IV 10 ml PRN PRN Administration LINE FLUSH
[2018-11-10 12:58] VITALS: BP 128/65
--- NOTE | 2018-11-10 16:09 | Discharge Summary ---
Providers - Providers Date of Admission: 11/08/18 22:30 Date of discharge: 11/10/18 Attending physician: ANGELICA LAYNE [facility] Hospital[facility] Condition: Fair Hospital course: --Diabetes 1.5, managed as type 2 Current Visit: Yes Status: Acute Plan to address problem: Patient diabetes at present has good control on current insulin. We'll continue current medical therapy. -- Diabetes Current Visit: Yes Status: Acute Plan to address problem: She is currently being treated with Humalog sliding scale insulin. Checks of been stable. -- Syncope Current Visit: Yes Status: Acute Patient with syncopal episode. No prodromal symptoms. Exact etiology unknown at this particular time patient had echocardiogram ejection fraction 55-60%. Patient had carotid Doppler which were negative as well. Patient extensive blood workup to rule out dehydration anemia all negative. Etiology unknown appears to have resolved. No EKG changes. If patient stable in a.m. we'll anticipate discharge. Cardiology for event monitor. -- Diabetic neuropathy Current Visit: Yes Status: Acute Plan to address problem: Resume gabapentin. --Hypertension Current Visit: Yes Status: Acute Plan to address problem: At present patient continues to have fair control of blood pressure. No medical management required at this time. -- Degenerative joint disease Current Visit: Yes Status: Acute Plan to address problem: [id number] pain control. Disposition: DC-01 TO HOME OR SELFCARE Time spent for discharge: 32 min Core Measure Documentation - Palliative Care Palliative Care/ Comfort Measures: Not Applicable - Core Measures Any of the following diagnoses?: none Exam - Constitutional Vitals: Temp Pulse Resp BP Pulse Ox 98.0 F 71 16 128/65 92 11/10/18 11:53 11/10/18 11:53 11/10/18 11:53 11/10/18 11:53 11/10/18 11:53 General appearance: Present: no acute distress, well-nourished - EENT Eyes: Present: PERRL, EOM intact - Neck Neck: Present: supple, normal ROM - Respiratory Respiratory effort: normal Respiratory: bilateral: diminished, negative: rales, rhonchi, wheezing - Cardiovascular Rhythm: regular Heart Sounds: Present: S1 & S2 - Extremities Extremities: no ischemia, No edema - Abdominal General gastrointestinal: Present: soft, non-tender, non-distended, normal bowel sounds - Integumentary Integumentary: Present: clear, warm - Musculoskeletal Musculoskeletal: strength equal bilaterally - Psychiatric Psychiatric: appropriate mood/affect, cooperative - Neurologic Neurologic: CNII-XII intact, moves all extremities Plan Activity: advance as tolerated, fall precautions Diet: diabetic Additional Instructions: Continue to have symptoms, advised to see a neurologist for further evaluation Follow up with: GIOVANNA DIAZATLANTA MD RACH [Primary Care Provider] - 3-5 Days ISIDRA BECK MD [Staff Physician] - 7 Days Prescriptions: oxyCODONE /ACETAMINOPHEN [Percocet 5/325] 1 tab PO QHS PRN #6 tablet PRN Reason: Pain , Severe (7-10)
== END 2018-11-10 19:10 | disposition home or self-care (01) ==
LOC: ED 18:28 → 3A 22:30
PROVIDERS: ADMIT Internal Medicine; ATTEND Internal Medicine
DX: R55 Syncope and collapse (principal); E11.9 Type 2 diabetes mellitus without complications; G40.909 Epilepsy, unspecified, not intractable, without status epilepticus; I10 Essential (primary) hypertension; E78.5 Hyperlipidemia, unspecified; M19.90 Unspecified osteoarthritis, unspecified site; F17.210 Nicotine dependence, cigarettes, uncomplicated
CPT/HCPCS: 36415; 70450; 72220; 80053; 80061; 80307; 81001; 82140; 82962; 83735; 84443; 84484; 85025; 85027; 87116; 93005; 93010; 93306; 93880; 96361; 96372; 96374; 96375; 96376; 99284; 99406; G0378; J1650; J1885; J2405; J7030; 80320; G0480; J1815

== ENCOUNTER 2019-01-01 18:48 | Emergency (ER) | payer MEDICAID, OTHER ==
--- NOTE | 2019-01-01 19:17 | Event Note ---
ED Screening Note Date of service: 01/01/19 Time: 19:11 ED Screening Note: 53 y/o female bought in [employer] for Suicidal ideation. Plan was to stab herself in the stomach with knife or scissor. This initial assessment/diagnostic orders/clinical plan/treatment(s) is/are subject to change based on patients health status, clinical progression and re- assessment by fellow clinical providers in the ED. Further treatment and workup at subsequent clinical providers discretion. Patient/guardian urged not to elope from the ED as their condition may be serious if not clinically assessed and managed. Initial orders include:
[2019-01-01 19:52] LABS: Basophils # (Auto) 0.1 K/mm3 (0.0-0.1); Basophils % (Auto) 0.8 % (0.0-1.8); Eosinophils # (Auto) 0.1 K/mm3 (0.0-0.4); Hematocrit 45.7 % (30.3-42.9); Hemoglobin 15.9 gm/dl (10.1-14.3); Lymphocytes % (Auto) 27.6 % (13.4-35.0); Mean Corpuscular HGB Conc 35 % (30-34); Mean Corpuscular Volume 99 fl (79-97); Monocytes # (Auto) 0.5 K/mm3 (0.0-0.8); Monocytes % (Auto) 6.5 % (0.0-7.3); Platelet Count 163 K/mm3 (140-440); Red Blood Count 4.61 M/mm3 (3.65-5.03)
[2019-01-01 20:15] LABS: Alanine Aminotransferase 13 units/L (7-56); Albumin 4.1 g/dL (3.9-5); BUN/Creatinine Ratio 21; Blood Urea Nitrogen 19 mg/dL (7-17); Hemolysis Index 11
[2019-01-01 20:15] LABS: Bacteria,Urine 1+ /HPF (Negative); Bilirubin,Urine NEG (Negative); Blood,Urine SM (Negative); Color,Urine Yellow (Yellow); Mucus,Urine FEW /HPF; Urobilinogen,Urine < 2.0 mg/dL (<2.0)
[2019-01-01 20:19] LABS: Amphetamine Screen,Urine PRESUMPTIVE NEGATIVE; Benzodiazepines Screen,Urine PRESUMPTIVE NEGATIVE; Cannabinoid Screen,Urine PRESUMPTIVE NEGATIVE; Cocaine Screen,Urine PRESUMPTIVE NEGATIVE; Methadone Screen,Urine PRESUMPTIVE NEGATIVE; Opiate Screen,Urine PRESUMPTIVE NEGATIVE
--- NOTE | 2019-01-01 23:28 | Emergency Department Report ---
ED Psych HPI - General Chief Complaint: Psych Stated Complaint: EMOTIONAL ISSUES Time Seen by Provider: 01/01/19 19:10 Source: patient, police Mode of arrival: Ambulatory Limitations: No Limitations - History of Present Illness Initial Comments: This is a 53-year-old female who presents to the emergency room via EMS for concerns of suicidal ideation. She states she told her spouse she will harm herself with scissors or knife in the stomach because he made her upset. Patient states she does not have real intention to kill herself. She just told him that to make Him upset because he pissed her off. Patient reports a past medical history of bipolar and currently taking medication daily. Patient states she sees a psychiatrist on a regular basis. States she is not sure why she is here. Denies suicidal ideation, homicidal ideation, or hallucination. MD Complaint: suicidal ideation -: This afternoon History of same: No Improves With: none Context: significant life stressor Associated Symptoms: denies other symptoms Treatments Prior to Arrival: none If Self Harm: has plan - Related Data Home Medications Medication Instructions Recorded Confirmed Last Taken carBAMazepine [TEGretol] 200 mg PO QAM 08/22/14 06/25/16 06/25/16 carBAMazepine [TEGretol] 400 mg PO HS 08/22/14 06/25/16 06/24/16 glyBURIDE [Diabeta] 10 mg PO QDAY 08/01/15 06/25/16 06/25/16 Insulin Aspart Protam & Aspart 20 unit SQ BIDDIAB 06/25/16 06/25/16 06/25/16 [NovoLOG Mix 70-30 Flexpen] Previous Rx's Medication Instructions Recorded Last Taken Type Naproxen 500 mg PO Q12H PRN #20 tablet 08/02/18 Unknown Rx oxyCODONE /ACETAMINOPHEN [Percocet 1 tab PO QHS PRN #6 tablet 11/10/18 Unknown Rx 5/325] Allergies Allergy/AdvReac Type Severity Reaction Status Date / Time codeine Allergy Unknown Verified 01/26/16 20:44 ED Review of Systems ROS: Stated complaint: EMOTIONAL ISSUES Other details as noted in HPI Constitutional: denies: chills, fever Respiratory: denies: cough, shortness of breath, wheezing Cardiovascular: denies: chest pain, palpitations Gastrointestinal: denies: abdominal pain, nausea, diarrhea Neurological: denies: headache, weakness, paresthesias Psychiatric: suicidal thoughts. denies: anxiety, depression, visual halluci nations, homicidal thoughts ED Past Medical Hx - Past Medical History Previous Medical History?: Yes Hx Hypertension: No Hx CVA: No Hx Heart Attack/AMI: No Hx Congestive Heart Failure: No Hx Diabetes: Yes Hx Deep Vein Thrombosis: No Hx Pulmonary Embolism: No Hx GERD: No Hx Liver Disease: No Hx Renal Disease: No Hx Sickle Cell Disease: No Hx Arthritis: No Hx Headaches / Migraines: No Hx Seizures: Yes Hx Kidney Stones: No Hx Psychiatric Treatment: No Hx Asthma: No Hx COPD: No Hx Tuberculosis: No Hx Dementia: No Hx HIV: No - Surgical History Past Surgical History?: Yes Hx Coronary Stent: No Hx Open Heart Surgery: No Hx Pacemaker: No Hx Internal Defibrillator: No Hx Cholecystectomy: No Hx Appendectomy: No Hx Breast Surgery: No Additional Surgical History: x 2 - Social History Smoking Status: Current Every Day Smoker Substance Use Type: None - Medications Home Medications: Home Medications Medication Instructions Recorded Confirmed Last Taken Type carBAMazepine [TEGretol] 200 mg PO QAM 08/22/14 06/25/16 06/25/16 History carBAMazepine [TEGretol] 400 mg PO HS 08/22/14 06/25/16 06/24/16 History glyBURIDE [Diabeta] 10 mg PO QDAY 08/01/15 06/25/16 06/25/16 History Insulin Aspart Protam & Aspart 20 unit SQ BIDDIAB 06/25/16 06/25/16 06/25/16 History [NovoLOG Mix 70-30 Flexpen] Naproxen 500 mg PO Q12H PRN #20 tablet 08/02/18 Unknown Rx oxyCODONE /ACETAMINOPHEN [Percocet 1 tab PO QHS PRN #6 tablet 11/10/18 Unknown Rx 5/325] ED Physical Exam - General Limitations: No Limitations General appearance: alert, in no apparent distress - Respiratory Respiratory exam: Present: normal lung sounds bilaterally. Absent: respiratory distress - Cardiovascular Cardiovascular Exam: Present: regular rate, normal rhythm. Absent: systolic murmur, diastolic murmur, rubs, gallop - GI/Abdominal GI/Abdominal exam: Present: soft, normal bowel sounds - Neurological Exam Neurological exam: Present: alert, oriented X3, normal gait - Psychiatric Psychiatric exam: Present: normal affect, normal mood - Skin Skin exam: Present: warm, dry, intact, normal color. Absent: rash ED Course Vital Signs 01/01/19 01/01/19 19:10 23:09 Temperature 98.2 F Pulse Rate 87 Respiratory 18 18 Rate Blood Pressure 128/82 O2 Sat by Pulse 96 Oximetry ED Medical Decision Making - Lab Data Result diagrams: 01/01/19 19:39 01/01/19 19:39 Lab Results 01/01/19 01/01/19 01/01/19 Range/Units 19:16 19:16 19:39 WBC 7.4 (4.5-11.0) K/mm3 RBC 4.61 (3.65-5.03) M/mm3 Hgb 15.9 H (10.1-14.3) gm/dl Hct 45.7 H (30.3-42.9) % MCV 99 H (79-97) fl MCH 34 H (28-32) pg MCHC 35 H (30-34) % RDW 13.0 L (13.2-15.2) % Plt Count 163 (140-440) K/mm3 Lymph % (Auto) 27.6 (13.4-35.0) % Whiteside % (Auto) 6.5 (0.0-7.3) % Eos % (Auto) 2.0 (0.0-4.3) % Baso % (Auto) 0.8 (0.0-1.8) % Lymph # 2.0 (1.2-5.4) K/mm3 Whiteside # 0.5 (0.0-0.8) K/mm3 Eos # 0.1 (0.0-0.4) K/mm3 Baso # 0.1 (0.0-0.1) K/mm3 Seg Neutrophils % 63.1 (40.0-70.0) % Seg Neutrophils # 4.7 (1.8-7.7) K/mm3 Sodium (137-145) mmol/L Potassium (3.6-5.0) mmol/L Chloride (98-107) mmol/L Carbon Dioxide (22-30) mmol/L Anion Gap mmol/L BUN (7-17) mg/dL Creatinine (0.7-1.2) mg/dL Estimated GFR ml/min BUN/Creatinine Ratio % Glucose (65-100) mg/dL Calcium (8.4-10.2) mg/dL Total Bilirubin (0.1-1.2) mg/dL AST (5-40) units/L ALT (7-56) units/L Alkaline Phosphatase (35-129) units/L Total Protein (6.3-8.2) g/dL Albumin (3.9-5) g/dL Albumin/Globulin Ratio % Urine Color Yellow (Yellow) Urine Turbidity Slightly-cloudy (Clear) Urine pH 5.0 (5.0-7.0) Ur Specific [place] 1.019 (1.003-1.030) Urine Protein 30 mg/dl (Negative) mg/dL Urine Glucose (UA) Neg (Negative) mg/dL Urine Ketones Neg (Negative) mg/dL Urine Blood Sm (Negative) Urine Nitrite Neg (Negative) Urine Bilirubin Neg (Negative) Urine Urobilinogen < 2.0 (<2.0) mg/dL Ur Leukocyte Esterase Neg (Negative) Urine WBC (Auto) 1.0 (0.0-6.0) /HPF Urine RBC (Auto) 6.0 (0.0-6.0) /HPF U Epithel Cells (Auto) 13.0 (0-13.0) /HPF Urine Bacteria (Auto) 1+ (Negative) /HPF Urine Mucus Few /HPF Salicylates (2.8-20.0) mg/dL Urine Opiates Screen Presumptive negative Urine Methadone Screen Presumptive negative Acetaminophen (10.0-30.0) ug/mL Ur Barbiturates Screen Presumptive negative Ur Phencyclidine Scrn Presumptive negative Ur Amphetamines Screen Presumptive negative U Benzodiazepines Scrn Presumptive negative Urine Cocaine Screen Presumptive negative U Marijuana (THC) Screen Presumptive negative Drugs of Abuse Note Disclamer Plasma/Serum Alcohol (0-0.07) % 01/01/19 01/01/19 01/01/19 Range/Units 19:39 19:39 19:39 WBC (4.5-11.0) K/mm3 RBC (3.65-5.03) M/mm3 Hgb (10.1-14.3) gm/dl Hct (30.3-42.9) % MCV (79-97) fl MCH (28-32) pg MCHC (30-34) % RDW (13.2-15.2) % Plt Count (140-440) K/mm3 Lymph % (Auto) (13.4-35.0) % Whiteside % (Auto) (0.0-7.3) % Eos % (Auto) (0.0-4.3) % Baso % (Auto) (0.0-1.8) % Lymph # (1.2-5.4) K/mm3 Whiteside # (0.0-0.8) K/mm3 Eos # (0.0-0.4) K/mm3 Baso # (0.0-0.1) K/mm3 Seg Neutrophils % (40.0-70.0) % Seg Neutrophils # (1.8-7.7) K/mm3 Sodium 141 (137-145) mmol/L Potassium 3.9 (3.6-5.0) mmol/L Chloride 102.9 (98-107) mmol/L Carbon Dioxide 23 (22-30) mmol/L Anion Gap 19 mmol/L BUN 19 H (7-17) mg/dL Creatinine 0.9 (0.7-1.2) mg/dL Estimated GFR > 60 ml/min BUN/Creatinine Ratio 21 % Glucose 141 H (65-100) mg/dL Calcium 9.0 (8.4-10.2) mg/dL Total Bilirubin 0.30 (0.1-1.2) mg/dL AST 16 (5-40) units/L ALT 13 (7-56) units/L Alkaline Phosphatase 123 (35-129) units/L Total Protein 7.2 (6.3-8.2) g/dL Albumin 4.1 (3.9-5) g/dL Albumin/Globulin Ratio 1.3 % Urine Color (Yellow) Urine Turbidity (Clear) Urine pH (5.0-7.0) Ur Specific [place] (1.003-1.030) Urine Protein (Negative) mg/dL Urine Glucose (UA) (Negative) mg/dL Urine Ketones (Negative) mg/dL Urine Blood (Negative) Urine Nitrite (Negative) Urine Bilirubin (Negative) Urine Urobilinogen (<2.0) mg/dL Ur Leukocyte Esterase (Negative) Urine WBC (Auto) (0.0-6.0) /HPF Urine RBC (Auto) (0.0-6.0) /HPF U Epithel Cells (Auto) (0-13.0) /HPF Urine Bacteria (Auto) (Negative) /HPF Urine Mucus /HPF Salicylates < 0.3 L (2.8-20.0) mg/dL Urine Opiates Screen Urine Methadone Screen Acetaminophen (10.0-30.0) ug/mL Ur Barbiturates Screen Ur Phencyclidine Scrn Ur Amphetamines Screen U Benzodiazepines Scrn Urine Cocaine Screen U Marijuana (THC) Screen Drugs of Abuse Note Plasma/Serum Alcohol < 0.01 (0-0.07) % 01/01/19 Range/Units 19:39 WBC (4.5-11.0) K/mm3 RBC (3.65-5.03) M/mm3 Hgb (10.1-14.3) gm/dl Hct (30.3-42.9) % MCV (79-97) fl MCH (28-32) pg MCHC (30-34) % RDW (13.2-15.2) % Plt Count (140-440) K/mm3 Lymph % (Auto) (13.4-35.0) % Whiteside % (Auto) (0.0-7.3) % Eos % (Auto) (0.0-4.3) % Baso % (Auto) (0.0-1.8) % Lymph # (1.2-5.4) K/mm3 Whiteside # (0.0-0.8) K/mm3 Eos # (0.0-0.4) K/mm3 Baso # (0.0-0.1) K/mm3 Seg Neutrophils % (40.0-70.0) % Seg Neutrophils # (1.8-7.7) K/mm3 Sodium (137-145) mmol/L Potassium (3.6-5.0) mmol/L Chloride (98-107) mmol/L Carbon Dioxide (22-30) mmol/L Anion Gap mmol/L BUN (7-17) mg/dL Creatinine (0.7-1.2) mg/dL Estimated GFR ml/min BUN/Creatinine Ratio % Glucose (65-100) mg/dL Calcium (8.4-10.2) mg/dL Total Bilirubin (0.1-1.2) mg/dL AST (5-40) units/L ALT (7-56) units/L Alkaline Phosphatase (35-129) units/L Total Protein (6.3-8.2) g/dL Albumin (3.9-5) g/dL Albumin/Globulin Ratio % Urine Color (Yellow) Urine Turbidity (Clear) Urine pH (5.0-7.0) Ur Specific [place] (1.003-1.030) Urine Protein (Negative) mg/dL Urine Glucose (UA) (Negative) mg/dL Urine Ketones (Negative) mg/dL Urine Blood (Negative) Urine Nitrite (Negative) Urine Bilirubin (Negative) Urine Urobilinogen (<2.0) mg/dL Ur Leukocyte Esterase (Negative) Urine WBC (Auto) (0.0-6.0) /HPF Urine RBC (Auto) (0.0-6.0) /HPF U Epithel Cells (Auto) (0-13.0) /HPF Urine Bacteria (Auto) (Negative) /HPF Urine Mucus /HPF Salicylates (2.8-20.0) mg/dL Urine Opiates Screen Urine Methadone Screen Acetaminophen < 5.0 L (10.0-30.0) ug/mL Ur Barbiturates Screen Ur Phencyclidine Scrn Ur Amphetamines Screen U Benzodiazepines Scrn Urine Cocaine Screen U Marijuana (THC) Screen Drugs of Abuse Note Plasma/Serum Alcohol (0-0.07) % - Medical Decision Making Patient was examined by me. Patient is nontoxic appearing and stable. Vitals are normal. Ordered labs the patient refuses. Consulted mental health. Mental health states patient is stable and able to follow up with her psychiatrist outpatient. Patient do not have current thoughts of harming herself or others. Instructed to continue current prescribed medication for bipolar. Referral to mental health for follow up. Patient discharged home in stable condition. Critical care attestation.: If time is entered above; I have spent that time in minutes in the direct care of this critically ill patient, excluding procedure time. ED Disposition Clinical Impression: Stress at home, Person with feared complaint in whom no diagnosis is made Disposition: TO HOME OR SELFCARE Is pt being admited?: No Condition: Stable Additional Instructions: Follow up with your psychiatrist or return to the emergency room with worsening symptoms. Referrals: [facility] [Outside] - 3-5 Days [facility] [Outside] - 3-5 Days Forms: Work/School Release Form(ED) Time of Disposition: 01:29
[2019-01-02 01:57] VITALS: BP 121/76
== END 2019-01-02 01:57 | disposition home or self-care (01) ==
LOC: ED 18:48
DX: Z71.1 Person with feared health complaint in whom no diagnosis is made (principal); F31.9 Bipolar disorder, unspecified; E11.9 Type 2 diabetes mellitus without complications; F17.200 Nicotine dependence, unspecified, uncomplicated; Z79.4 Long term (current) use of insulin; Z88.5 Allergy status to narcotic agent; Z79.899 Other long term (current) drug therapy
CPT/HCPCS: 36415; 80053; 80307; 80320; 81001; 85025; 93005; 93010; 99284; G0480

== ENCOUNTER 2019-06-19 13:29 | Emergency (ER) | payer MEDICAID ==
--- NOTE | 2019-06-19 15:01 | Emergency Department Report ---
ED Psych HPI - General Chief Complaint: Psych Stated Complaint: PSYCH Time Seen by Provider: 06/19/19 14:06 Source: patient Mode of arrival: Stretcher - History of Present Illness Initial Comments: Patient is a 54-year-old female is presenting with exacerbation of mental health issues. Patient son called paramedics because the patient has been locked in her room for the last 2 weeks. Is unknown the exact circumstances but the patient became very while on aggressive at the home. Paramedics had to administer Benadryl Versed and Haldol to control the patient. At this time the patient is drowsy but states that she believes people in the house are trying to kill her. She denies being homicidal suicidal at this time. She did not answer whether she was having auditory or visual hallucinations. - Related Data Home Medications Medication Instructions Recorded Confirmed Last Taken carBAMazepine [TEGretol] 200 mg PO QAM 08/22/14 06/20/19 06/25/16 carBAMazepine [TEGretol] 400 mg PO HS 08/22/14 06/20/19 06/24/16 Insulin Aspart Protam & Aspart 20 unit SQ BIDDIAB 06/25/16 06/20/19 06/25/16 [NovoLOG Mix 70-30 Flexpen] Previous Rx's Medication Instructions Recorded Last Taken Type Naproxen 500 mg PO Q12H PRN #20 tablet 08/02/18 Unknown Rx Allergies Allergy/AdvReac Type Severity Reaction Status Date / Time codeine Allergy Unknown Verified 01/26/16 20:44 ED Review of Systems ROS: Stated complaint: PSYCH Other details as noted in HPI Comment: Unobtainable due to pts medical conditions ED Past Medical Hx - Past Medical History Hx Hypertension: No Hx CVA: No Hx Heart Attack/AMI: No Hx Congestive Heart Failure: No Hx Diabetes: Yes Hx Deep Vein Thrombosis: No Hx Pulmonary Embolism: No Hx GERD: No Hx Liver Disease: No Hx Renal Disease: No Hx Sickle Cell Disease: No Hx Arthritis: No Hx Headaches / Migraines: No Hx Seizures: Yes Hx Kidney Stones: No Hx Psychiatric Treatment: No Hx Asthma: No Hx COPD: No Hx Tuberculosis: No Hx Dementia: No Hx HIV: No - Surgical History Hx Coronary Stent: No Hx Open Heart Surgery: No Hx Pacemaker: No Hx Internal Defibrillator: No Hx Cholecystectomy: No Hx Appendectomy: No Hx Breast Surgery: No Additional Surgical History: x 2 - Social History Smoking Status: Never Smoker Substance Use Type: None - Medications Home Medications: Home Medications Medication Instructions Recorded Confirmed Last Taken Type carBAMazepine [TEGretol] 200 mg PO QAM 08/22/14 06/20/19 06/25/16 History carBAMazepine [TEGretol] 400 mg PO HS 08/22/14 06/20/19 06/24/16 History Insulin Aspart Protam & Aspart 20 unit SQ BIDDIAB 06/25/16 06/20/19 06/25/16 History [NovoLOG Mix 70-30 Flexpen] Naproxen 500 mg PO Q12H PRN #20 tablet 08/02/18 06/20/19 Unknown Rx ED Physical Exam - General Limitations: No Limitations General appearance: alert, in no apparent distress, other (Drowsy secondary to being premedicated for aggressive behavior prior to arrival) - Head Head exam: Present: atraumatic, normocephalic - Eye Eye exam: Present: normal appearance, PERRL, EOMI - ENT ENT exam: Present: normal orophraynx, mucous membranes moist - Neck Neck exam: Present: normal inspection - Respiratory Respiratory exam: Present: normal lung sounds bilaterally. Absent: respiratory distress, wheezes, rales, rhonchi - Cardiovascular Cardiovascular Exam: Present: regular rate, normal rhythm, normal heart sounds. Absent: systolic murmur, diastolic murmur, rubs, gallop - GI/Abdominal GI/Abdominal exam: Present: soft, normal bowel sounds. Absent: distended, tenderness, guarding, rebound - Extremities Exam Extremities exam: Present: normal inspection - Back Exam Back exam: Present: normal inspection - Neurological Exam Neurological exam: Present: alert, oriented X3 - Psychiatric Psychiatric exam: Present: normal affect, normal mood - Skin Skin exam: Present: warm, dry, intact, normal color. Absent: rash ED Course Vital Signs 06/19/19 06/19/19 06/19/19 13:53 14:00 20:15 Temperature 98 F 98.2 F Pulse Rate 71 84 Respiratory 16 15 16 Rate Blood Pressure 110/63 Blood Pressure 110/63 124/72 [Right] O2 Sat by Pulse 98 96 Oximetry 06/20/19 06/20/19 06/20/19 02:10 08:33 19:20 Temperature 98.2 F 97.4 F L 98.6 F Pulse Rate 69 65 90 Respiratory 16 14 18 Rate Blood Pressure Blood Pressure 117/74 131/83 118/68 [Right] O2 Sat by Pulse 96 97 96 Oximetry 06/20/19 06/21/19 06/21/19 20:40 01:00 08:10 Temperature 98.0 F 98.1 F Pulse Rate 80 77 Respiratory 18 20 18 Rate Blood Pressure Blood Pressure 123/64 116/74 [Right] O2 Sat by Pulse 99 97 Oximetry 06/21/19 06/21/19 06/21/19 13:48 20:00 21:06 Temperature 98.4 F 97.9 F Pulse Rate 80 70 Respiratory 18 18 18 Rate Blood Pressure Blood Pressure 120/70 141/83 [Right] O2 Sat by Pulse 98 100 100 Oximetry 06/22/19 06/22/19 06/22/19 01:25 09:19 13:50 Temperature 98.2 F 97.3 F L 97.8 F Pulse Rate 73 90 68 Respiratory 20 18 18 Rate Blood Pressure Blood Pressure 122/70 153/85 128/79 [Right] O2 Sat by Pulse 99 99 100 Oximetry 06/22/19 06/23/19 06/23/19 20:12 02:03 07:27 Temperature 97.6 F 97.6 F 97.4 F L Pulse Rate 70 87 73 Respiratory 16 18 18 Rate Blood Pressure Blood Pressure 117/70 146/82 130/79 [Right] O2 Sat by Pulse 100 100 100 Oximetry 06/23/19 06/23/19 09:20 14:18 Temperature 97.6 F Pulse Rate 63 Respiratory 18 18 Rate Blood Pressure Blood Pressure 108/70 [Right] O2 Sat by Pulse 100 98 Oximetry - Reevaluation(s) Reevaluation #1: 06/19/19 21:50 Patient is medically cleared at this time and is waiting for mental health assessment Reevaluation #2: 06/20/19 21:04 NATEBEA JEIMY Female : 1965 MedRec# [id number] 06/20/19 09:43 - Marketing Strategy Manager's Note by RUBI CORDOVA Acct Num: [id number] : 1965 Patient Age: 54 MENTAL HEALTH ASSESSMENT COMPLETED: Pt is a 54 year old female who was brought in by EMS after family called due to pt's paranoia and abnormal behaviors. Pt stated, "I haven't had a bath in a year." "They say I'm polo." (I believe the pt is referring to Bipolar disorder.) Pt's son reports that the pt has "Schizophrenia and Bipolar and Depression and spells." "It's like her mind isn't working and isn't telling her to do things she should do. She is having another spell. She has had episodes her whole life." Family reports that the pt is paranoid. Pt's outpatient provider is Dr. Blevins on [facility] for medications; "I only go every three months because they give me 2 refills of Tegretal. That's all I take right now." Pt has no current outpatient therapist. Pt has a history of inpatient at "[facility] and [facility] a long, long time;" pt has not been admitted anywhere recently. Pt is oriented x 2. Pt believes she is at [facility]. "My clothes ain't washed; I aint had a bath." Pt appears paranoid that her family is harming her. Pt believes that there are bugs crawling on her. "I'm losing it; I can't remember nothing or any dates." Son expressed concern that the pt is dis playing symptoms that have resulted in hospitalization in the past; "maybe she needs her meds changed; I'm not sure." Pt has poor insight, fair judgment, impaired concentration, attention and memory. When asked about suicidal thoughts, "I've thought about it because of all this that's getting done to me; I can't believe my family is doing this to me." "I ain't really ever went through and done nothing to hurt myself." Son confirms that pt makes suicidal statements often but has never harmed herself. When asked about HI; "No, I try to help everyone, and this is the thanks I get." Son reports that the pt has, "aggressive spells where she spazes out, and they have to sedate her; like the ambulance did last night." Pt reports that she use to smoke, "but my family made quit." Pt denies illegal substances/"drugs; o, no I don't do those." RECOMMENDATION: Initiate 1013; mental health slurry control tender will begin the referral process for inpatient stabilization. Rubi Jaime LPC Initialized on 06/20/19 09:43 - END OF NOTE Patient still awaiting placement Reevaluation #3: 06/23/19 17:07 Patient was accepted to [facility] ED Medical Decision Making - Lab Data Result diagrams: 06/19/19 15:05 06/19/19 15:05 Lab Results 06/19/19 06/19/19 06/19/19 Range/Units 15:05 15:05 15:05 WBC 4.8 (4.5-11.0) K/mm3 RBC 3.98 (3.65-5.03) M/mm3 Hgb 13.2 (10.1-14.3) gm/dl Hct 37.5 (30.3-42.9) % MCV 94 (79-97) fl MCH 33 H (28-32) pg MCHC 35 H (30-34) % RDW 12.5 L (13.2-15.2) % Plt Count 200 (140-440) K/mm3 Lymph % (Auto) 33.2 (13.4-35.0) % Pope % (Auto) 7.4 H (0.0-7.3) % Eos % (Auto) 1.2 (0.0-4.3) % Baso % (Auto) 0.4 (0.0-1.8) % Lymph # 1.6 (1.2-5.4) K/mm3 Pope # 0.4 (0.0-0.8) K/mm3 Eos # 0.1 (0.0-0.4) K/mm3 Baso # 0.0 (0.0-0.1) K/mm3 Seg Neutrophils % 57.8 (40.0-70.0) % Seg Neutrophils # 2.8 (1.8-7.7) K/mm3 Sodium 140 (137-145) mmol/L Potassium 4.1 (3.6-5.0) mmol/L Chloride 100.4 (98-107) mmol/L Carbon Dioxide 25 (22-30) mmol/L Anion Gap 19 mmol/L BUN 25 H (7-17) mg/dL Creatinine 1.2 (0.7-1.2) mg/dL Estimated GFR 46 ml/min BUN/Creatinine Ratio 21 % Glucose 164 H (65-100) mg/dL POC Glucose (70-105) Calcium 9.1 (8.4-10.2) mg/dL Urine Color (Yellow) Urine Turbidity (Clear) Urine pH (5.0-7.0) Ur Specific [place] (1.003-1.030) Urine Protein (Negative) mg/dL Urine Glucose (UA) (Negative) mg/dL Urine Ketones (Negative) mg/dL Urine Blood (Negative) Urine Nitrite (Negative) Urine Bilirubin (Negative) Urine Urobilinogen (<2.0) mg/dL Ur Leukocyte Esterase (Negative) Urine WBC (Auto) (0.0-6.0) /HPF Urine RBC (Auto) (0.0-6.0) /HPF U Epithel Cells (Auto) (0-13.0) /HPF Urine Mucus /HPF Salicylates < 0.3 L (2.8-20.0) mg/dL Urine Opiates Screen Urine Methadone Screen Acetaminophen (10.0-30.0) ug/mL Ur Barbiturates Screen Ur Phencyclidine Scrn Ur Amphetamines Screen U Benzodiazepines Scrn Urine Cocaine Screen U Marijuana (THC) Screen Drugs of Abuse Note Plasma/Serum Alcohol (0-0.07) % 06/19/19 06/19/19 06/19/19 Range/Units 15:05 15:05 15:42 WBC (4.5-11.0) K/mm3 RBC (3.65-5.03) M/mm3 Hgb (10.1-14.3) gm/dl Hct (30.3-42.9) % MCV (79-97) fl MCH (28-32) pg MCHC (30-34) % RDW (13.2-15.2) % Plt Count (140-440) K/mm3 Lymph % (Auto) (13.4-35.0) % Pope % (Auto) (0.0-7.3) % Eos % (Auto) (0.0-4.3) % Baso % (Auto) (0.0-1.8) % Lymph # (1.2-5.4) K/mm3 Pope # (0.0-0.8) K/mm3 Eos # (0.0-0.4) K/mm3 Baso # (0.0-0.1) K/mm3 Seg Neutrophils % (40.0-70.0) % Seg Neutrophils # (1.8-7.7) K/mm3 Sodium (137-145) mmol/L Potassium (3.6-5.0) mmol/L Chloride (98-107) mmol/L Carbon Dioxide (22-30) mmol/L Anion Gap mmol/L BUN (7-17) mg/dL Creatinine (0.7-1.2) mg/dL Estimated GFR ml/min BUN/Creatinine Ratio % Glucose (65-100) mg/dL POC Glucose (70-105) Calcium (8.4-10.2) mg/dL Urine Color (Yellow) Urine Turbidity (Clear) Urine pH (5.0-7.0) Ur Specific [place] (1.003-1.030) Urine Protein (Negative) mg/dL Urine Glucose (UA) (Negative) mg/dL Urine Ketones (Negative) mg/dL Urine Blood (Negative) Urine Nitrite (Negative) Urine Bilirubin (Negative) Urine Urobilinogen (<2.0) mg/dL Ur Leukocyte Esterase (Negative) Urine WBC (Auto) (0.0-6.0) /HPF Urine RBC (Auto) (0.0-6.0) /HPF U Epithel Cells (Auto) (0-13.0) /HPF Urine Mucus /HPF Salicylates (2.8-20.0) mg/dL Urine Opiates Screen Presumptive negative Urine Methadone Screen Presumptive negative Acetaminophen < 5.0 L (10.0-30.0) ug/mL Ur Barbiturates Screen Presumptive negative Ur Phencyclidine Scrn Presumptive negative Ur Amphetamines Screen Presumptive negative U Benzodiazepines Scrn Presumptive positive Urine Cocaine Screen Presumptive negative U Marijuana (THC) Screen Presumptive negative Drugs of Abuse Note Disclamer Plasma/Serum Alcohol < 0.01 (0-0.07) % 06/19/19 06/19/19 Range/Units 15:48 18:04 WBC (4.5-11.0) K/mm3 RBC (3.65-5.03) M/mm3 Hgb (10.1-14.3) gm/dl Hct (30.3-42.9) % MCV (79-97) fl MCH (28-32) pg MCHC (30-34) % RDW (13.2-15.2) % Plt Count (140-440) K/mm3 Lymph % (Auto) (13.4-35.0) % Pope % (Auto) (0.0-7.3) % Eos % (Auto) (0.0-4.3) % Baso % (Auto) (0.0-1.8) % Lymph # (1.2-5.4) K/mm3 Pope # (0.0-0.8) K/mm3 Eos # (0.0-0.4) K/mm3 Baso # (0.0-0.1) K/mm3 Seg Neutrophils % (40.0-70.0) % Seg Neutrophils # (1.8-7.7) K/mm3 Sodium (137-145) mmol/L Potassium (3.6-5.0) mmol/L Chloride (98-107) mmol/L Carbon Dioxide (22-30) mmol/L Anion Gap mmol/L BUN (7-17) mg/dL Creatinine (0.7-1.2) mg/dL Estimated GFR ml/min BUN/Creatinine Ratio % Glucose (65-100) mg/dL POC Glucose 119 H (70-105) Calcium (8.4-10.2) mg/dL Urine Color Yellow (Yellow) Urine Turbidity Slightly-cloudy (Clear) Urine pH 5.0 (5.0-7.0) Ur Specific [place] 1.013 (1.003-1.030) Urine Protein <15 mg/dl (Negative) mg/dL Urine Glucose (UA) Neg (Negative) mg/dL Urine Ketones Neg (Negative) mg/dL Urine Blood Sm (Negative) Urine Nitrite Neg (Negative) Urine Bilirubin Neg (Negative) Urine Urobilinogen < 2.0 (<2.0) mg/dL Ur Leukocyte Esterase Neg (Negative) Urine WBC (Auto) 2.0 (0.0-6.0) /HPF Urine RBC (Auto) 2.0 (0.0-6.0) /HPF U Epithel Cells (Auto) 5.0 (0-13.0) /HPF Urine Mucus Few /HPF Salicylates (2.8-20.0) mg/dL Urine Opiates Screen Urine Methadone Screen Acetaminophen (10.0-30.0) ug/mL Ur Barbiturates Screen Ur Phencyclidine Scrn Ur Amphetamines Screen U Benzodiazepines Scrn Urine Cocaine Screen U Marijuana (THC) Screen Drugs of Abuse Note Plasma/Serum Alcohol (0-0.07) % Critical care attestation.: If time is entered above; I have spent that time in minutes in the direct care of this critically ill patient, excluding procedure time. ED Disposition Clinical Impression: Acute psychosis Disposition: DC/TX-65 PSY HOSP/PSY UNIT Is pt being admited?: No Does the pt Need Aspirin: No Condition: Stable Time of Disposition: 17:07
[2019-06-19 15:24] LABS: Basophils % (Auto) 0.4 % (0.0-1.8); Eosinophils # (Auto) 0.1 K/mm3 (0.0-0.4); Eosinophils % (Auto) 1.2 % (0.0-4.3); Hematocrit 37.5 % (30.3-42.9); Hemoglobin 13.2 gm/dl (10.1-14.3); Lymphocytes # (Auto) 1.6 K/mm3 (1.2-5.4); Lymphocytes % (Auto) 33.2 % (13.4-35.0); Mean Corpuscular HGB Conc 35 % (30-34); Mean Corpuscular Volume 94 fl (79-97); Monocytes # (Auto) 0.4 K/mm3 (0.0-0.8); Monocytes % (Auto) 7.4 % (0.0-7.3); Platelet Count 200 K/mm3 (140-440); Red Blood Count 3.98 M/mm3 (3.65-5.03); Red Cell Distribution Width 12.5 % (13.2-15.2)
[2019-06-19 15:43] LABS: Calcium 9.1 mg/dL (8.4-10.2)
[2019-06-19 16:02] LABS: Bilirubin,Urine NEG (Negative); Blood,Urine SM (Negative); Color,Urine Yellow (Yellow); Mucus,Urine FEW /HPF; Protein,Urine <15 mg/dL mg/dL (Negative); Urobilinogen,Urine < 2.0 mg/dL (<2.0)
[2019-06-19 16:11] LABS: Cannabinoid Screen,Urine PRESUMPTIVE NEGATIVE; Cocaine Screen,Urine PRESUMPTIVE NEGATIVE; Methadone Screen,Urine PRESUMPTIVE NEGATIVE; Opiate Screen,Urine PRESUMPTIVE NEGATIVE
[2019-06-19 16:28] LABS: Amphetamine Screen,Urine PRESUMPTIVE NEGATIVE; Benzodiazepines Screen,Urine PRESUMPTIVE POSITIVE
[2019-06-20] MEDS: metFORMIN 500 MG TAB PO SCH (22:20)
[2019-06-21] MEDS ORDERED: LORazepam 2 MG TAB ONE (00:11)
[2019-06-21] MEDS ORDERED: LORazepam 1 MG TAB PO ONE (00:11)
[2019-06-21] MEDS ORDERED: NYSTATIN CREAM 15 GM TUBE TP ONE (09:24)
--- NOTE | 2019-06-21 09:33 | Consultation ---
History of Present Illness - Reason for Consult Consult date: 06/21/19 Reason for consult: Psychosis Requesting physician: AMADO BOLAÑOS - Chief Complaint Chief complaint: People are laughing at me - History of Present Psychiatric Illness The patient is a 54yo , disabled female with history of Bipolar disorder. She presents with paranoia, auditory hallucinations and agitation. Per ED documentation, patient's son called paramedics because the patient has been locked in her room for the last 2 weeks. Is unknown the exact circumstances but the patient became very aggressive, Paramedics had to administer Benadryl, Versed and Haldol to control the patient. At this time the patient is drowsy but states that she believes people in the house are trying to kill her. She denies being homicidal suicidal at this time. She did not answer whether she was having auditory or visual hallucinations. In my interview with the patient this morning, she endorses hearing people laugh at her at home, she believes that they are plotting to kill her, so she locked herself in her room. She reports feeling anxious and has difficult staying asleep because of being afraid for her safety. Patient denies panic attacks, recurrent nightmares or flashbacks. Patient denies symptoms suggestive of OCD or PTSD. She denies suicidal or homicidal thoughts. PAST PSYCHIATRIC HISTORY: Diagnoses: Bipolar disorder Suicide attempts or Self-harm behavior: patient denies Prior psychiatric hospitalizations: yes Substance Abuse history: patient denies Previous psychiatric medications tried: Unknown Outpatient treatment: no Family Psychiatric History None reported or documented SOCIAL HISTORY Marital Status: Living Arrangements: with ex- Employment Status: disabled Access to guns/weapons: Patient denies Education: High School History of Abuse: Patient denies Legal History: Patient denies REVIEW OF SYSTEMS ROS cannot be reliably obtained from the patient due to her confusion and somnol ence. ROS: Constitutional: Negative for weight loss ENT: Negative for stridor Respiratory: Negative for cough or hemoptysis All other systems reviewed and are negative MENTAL STATUS General Appearance and Behavior: age appropriate, good eye contact, cooperative with questioning and polite Cooperation: Cooperative Psychomotor Behavior: within normal limits Mood: anxious Affect and affective range: Congruent with stated mood Thought Process: Fluent/Logical and Goal-directed Thought Content: Paranoid and AH Speech: Normal volume and Regular rate and rhythm Intellectual Functioning Average Suicidal Ideation: Denies SI Homicidal Ideation: Denies HI Impulse Control: intact Insight and Judgment: normal insight and judgment Memory: Normal Attention: Normal Orientation: alert and oriented Diagnosis: Schizoaffective disorder, Bipolar type RECOMMENDATIONS MEDICATIONS: Resume Tegretol and start Risperidone 0.5mg bid Risks, benefits and alternatives of medications discussed with the patient, questions answered and consent obtained from patient. 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 Please contact with any questions and/or concerns. Medications and Allergies Allergies Allergy/AdvReac Type Severity Reaction Status Date / Time codeine Allergy Unknown Verified 01/26/16 20:44 Home Medications Medication Instructions Recorded Confirmed Last Taken Type carBAMazepine [TEGretol] 200 mg PO QAM 08/22/14 06/20/19 06/25/16 History carBAMazepine [TEGretol] 400 mg PO HS 08/22/14 06/20/19 06/24/16 History Insulin Aspart Protam & Aspart 20 unit SQ BIDDIAB 06/25/16 06/20/19 06/25/16 History [NovoLOG Mix 70-30 Flexpen] Naproxen 500 mg PO Q12H PRN #20 tablet 08/02/18 06/20/19 Unknown Rx Active Meds: Active Medications Metformin HCl (Glucophage) 500 mg PO BID [facility] Last Admin: 06/20/19 22:20 Dose: 500 mg Documented by: Mental Status Exam - Vital signs Last Vital Signs Temp 98.1 F 06/21/19 08:10 Pulse 77 06/21/19 08:10 Resp 18 06/21/19 08:10 BP 116/74 06/21/19 08:10 Pulse Ox 97 06/21/19 08:10 Results Result Diagrams: 06/19/19 15:05 06/19/19 15:05 Abnormal lab results 06/20/19 06/21/19 Range/Units 12:55 07:00 Carbamazepine 3.2 L 2.0 L (4-12) ug/mL All other labs normal.
[2019-06-21] MEDS: carBAMazepine 200 MG TAB PO SCH ×2 (10:02→22:09)
[2019-06-21] MEDS: metFORMIN 500 MG TAB PO SCH ×2 (10:03→22:11)
[2019-06-21] MEDS: risperiDONE 0.25 MG TAB PO SCH ×2 (10:03→22:11)
[2019-06-22] MEDS: risperiDONE 0.25 MG TAB PO SCH ×2 (09:53→22:01)
[2019-06-22] MEDS: metFORMIN 500 MG TAB PO SCH ×2 (09:53→22:00)
[2019-06-22] MEDS: carBAMazepine 200 MG TAB PO SCH ×2 (09:53→22:00)
[2019-06-22] MEDS ORDERED: IBUPROFEN 800 MG TAB PO ONE (10:31)
--- NOTE | 2019-06-22 12:06 | Progress Note ---
Subjective - Reason for Consult Consult date: 06/22/19 Reason for consult: Psych follow up - Chief Complaint Chief complaint: People want me SUBJECTIVE Patient is tearful and paranoid this morning. She states that some people want her . ROS: Constitutional: Negative for weight loss ENT: Negative for stridor Respiratory: Negative for cough or hemoptysis All other systems reviewed and are negative MENTAL STATUS General Appearance and Behavior: age appropriate, good eye contact, cooperative with questioning and polite Cooperation: Cooperative Psychomotor Behavior: within normal limits Mood: anxious Affect and affective range: Congruent with stated mood Thought Process: Fluent/Logical and Goal-directed Thought Content: Paranoid and AH Speech: Normal volume and Regular rate and rhythm Intellectual Functioning Average Suicidal Ideation: Denies SI Homicidal Ideation: Denies HI Impulse Control: intact Insight and Judgment: normal insight and judgment Memory: Normal Attention: Normal Orientation: alert and oriented Diagnosis: Schizoaffective disorder, Bipolar type RECOMMENDATIONS MEDICATIONS: continue Tegretol 200/400mg and increase Risperidone to 1mg bid Risks, benefits and alternatives of medications discussed with the patient, questions answered and consent obtained from patient. 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 Please contact with any questions and/or concerns. Mental Status Exam - Vital signs Last Vital Signs Temp 97.3 F L 06/22/19 09:19 Pulse 90 06/22/19 09:19 Resp 18 06/22/19 09:19 BP 153/85 06/22/19 09:19 Pulse Ox 99 06/22/19 09:19
[2019-06-22] MEDS ORDERED: ACETAMINOPHEN 325 MG TAB PO PRN (17:24)
[2019-06-23] MEDS: risperiDONE 0.25 MG TAB PO SCH (10:05)
[2019-06-23] MEDS: carBAMazepine 200 MG TAB PO SCH (10:05)
[2019-06-23] MEDS: metFORMIN 500 MG TAB PO SCH (10:05)
--- NOTE | 2019-06-23 12:02 | Progress Note ---
Subjective - Reason for Consult Consult date: 06/23/19 Reason for consult: Psych follow up - Chief Complaint Chief complaint: My family want me SUBJECTIVE Patient continues to be psychotic, disorganize and paranoid. She states that her family want her and she is afraid going back home. She is compliant with meds and denies side effects. ROS: Constitutional: Negative for weight loss ENT: Negative for stridor Respiratory: Negative for cough or hemoptysis All other systems reviewed and are negative MENTAL STATUS General Appearance and Behavior: age appropriate, good eye contact, cooperative with questioning and polite Cooperation: Cooperative Psychomotor Behavior: within normal limits Mood: anxious Affect and affective range: Congruent with stated mood Thought Process: Fluent/Logical and Goal-directed Thought Content: Paranoid and AH Speech: Normal volume and Regular rate and rhythm Intellectual Functioning Average Suicidal Ideation: Denies SI Homicidal Ideation: Denies HI Impulse Control: intact Insight and Judgment: normal insight and judgment Memory: Normal Attention: Normal Orientation: alert and oriented Diagnosis: Schizoaffective disorder, Bipolar type RECOMMENDATIONS MEDICATIONS: continue Tegretol 200/400mg and Risperidone 1mg bid Risks, benefits and alternatives of medications discussed with the patient, questions answered and consent obtained from patient. 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 Mental Status Exam - Vital signs Last Vital Signs Temp 97.4 F L 06/23/19 07:27 Pulse 73 06/23/19 07:27 Resp 18 06/23/19 09:20 BP 130/79 06/23/19 07:27 Pulse Ox 100 06/23/19 09:20
[2019-06-23 14:19] VITALS: BP 108/70
== END 2019-06-23 18:27 ==
LOC: ED 13:29
DX: F22 Delusional disorders (principal); F31.9 Bipolar disorder, unspecified; E11.9 Type 2 diabetes mellitus without complications; Z88.5 Allergy status to narcotic agent; Z79.899 Other long term (current) drug therapy
CPT/HCPCS: 36415; 80048; 80156; 80307; 80320; 81001; 82962; 85025; 99285; G0480

== ENCOUNTER 2019-07-04 09:12 | Emergency (ER) | payer MEDICAID ==
[2019-07-04] MEDS ORDERED: MECLIZINE 25 MG TAB PO ONE (09:52)
--- NOTE | 2019-07-04 09:57 | Emergency Department Report ---
ED Dizziness HPI - General Chief Complaint: Dizziness Stated Complaint: DIZZINESS Time Seen by Provider: 07/04/19 09:25 Source: patient, EMS Mode of arrival: Stretcher Limitations: No Limitations - History of Present Illness Initial Comments: Patient is 54-year-old female with history of seizure and diabetes. Patient lives in a correction. Patient brought to the emergency room via EMS for evaluation of dizziness started today. Patient stated that she was given medicine last night that she does not know and she think this is what caused her dizziness. Patient stated that she went to the bathroom she got dizzy and fell and hit the couch on the back of her head. She stated that she still feels dizzy and she feels the room is spinning. Patient denied any chest pain or shortness of breath. No weakness numbness or tingling sensation. No bowel or bladder incontinence. MD Complaint: dizziness - Related Data Home Medications Medication Instructions Recorded Confirmed Last Taken carBAMazepine [TEGretol] 200 mg PO QAM 08/22/14 06/20/19 06/25/16 carBAMazepine [TEGretol] 400 mg PO HS 08/22/14 06/20/19 06/24/16 Insulin Aspart Protam & Aspart 20 unit SQ BIDDIAB 06/25/16 06/20/19 06/25/16 [NovoLOG Mix 70-30 Flexpen] Previous Rx's Medication Instructions Recorded Last Taken Type Naproxen 500 mg PO Q12H PRN #20 tablet 08/02/18 Unknown Rx Allergies Allergy/AdvReac Type Severity Reaction Status Date / Time codeine Allergy Unknown Verified 01/26/16 20:44 ED Review of Systems ROS: Stated complaint: DIZZINESS Other details as noted in HPI Comment: All other systems reviewed and negative Constitutional: denies: chills, fever Respiratory: denies: cough, shortness of breath, SOB with exertion, wheezing Cardiovascular: denies: chest pain, palpitations Gastrointestinal: denies: abdominal pain, nausea, vomiting Musculoskeletal: denies: back pain Neurological: vertigo. denies: headache, weakness, numbness, paresthesias, confusion, abnormal gait ED Past Medical Hx - Past Medical History Hx Hypertension: No Hx CVA: No Hx Heart Attack/AMI: No Hx Congestive Heart Failure: No Hx Diabetes: Yes Hx Deep Vein Thrombosis: No Hx Pulmonary Embolism: No Hx GERD: No Hx Liver Disease: No Hx Renal Disease: No Hx Sickle Cell Disease: No Hx Arthritis: No Hx Headaches / Migraines: No Hx Seizures: Yes Hx Kidney Stones: No Hx Psychiatric Treatment: No Hx Asthma: No Hx COPD: No Hx Tuberculosis: No Hx Dementia: No Hx HIV: No - Surgical History Hx Coronary Stent: No Hx Open Heart Surgery: No Hx Pacemaker: No Hx Internal Defibrillator: No Hx Cholecystectomy: No Hx Appendectomy: No Hx Breast Surgery: No Additional Surgical History: x 2 - Social History Smoking Status: Current Every Day Smoker - Medications Home Medications: Home Medications Medication Instructions Recorded Confirmed Last Taken Type carBAMazepine [TEGretol] 200 mg PO QAM 08/22/14 06/20/19 06/25/16 History carBAMazepine [TEGretol] 400 mg PO HS 08/22/14 06/20/19 06/24/16 History Insulin Aspart Protam & Aspart 20 unit SQ BIDDIAB 06/25/16 06/20/19 06/25/16 History [NovoLOG Mix 70-30 Flexpen] Naproxen 500 mg PO Q12H PRN #20 tablet 08/02/18 06/20/19 Unknown Rx ED Physical Exam - General Limitations: No Limitations General appearance: alert, in no apparent distress - Head Head exam: Present: atraumatic, normocephalic, normal inspection - Eye Eye exam: Present: normal appearance, PERRL - ENT ENT exam: Present: normal exam, normal orophraynx, mucous membranes moist - Neck Neck exam: Present: normal inspection, full ROM. Absent: tenderness, meningismus, lymphadenopathy, thyromegaly - Respiratory Respiratory exam: Present: normal lung sounds bilaterally - Cardiovascular Cardiovascular Exam: Present: regular rate, normal rhythm, normal heart sounds - GI/Abdominal GI/Abdominal exam: Present: soft, normal bowel sounds. Absent: distended, tenderness, guarding, rebound, rigid, organomegaly, mass, bruit, pulsatile mass, hernia - Extremities Exam Extremities exam: Present: normal inspection, full ROM, normal capillary refill. Absent: pedal edema, calf tenderness - Back Exam Back exam: Present: normal inspection, full ROM. Absent: CVA tenderness (R), CVA tenderness (L) - Neurological Exam Neurological exam: Present: alert, oriented X3, CN II-XII intact, normal gait, reflexes normal. Absent: motor sensory deficit - Psychiatric Psychiatric exam: Present: normal mood. Absent: depressed, agitated, homicidal ideation, suicidal ideation - Skin Skin exam: Present: warm, intact, normal color ED Medical Decision Making - Lab Data Result diagrams: 07/04/19 10:17 07/04/19 10:17 - EKG Data -: EKG Interpreted by Me EKG shows normal: sinus rhythm Rate: normal - EKG Data Interpretation: no acute changes - Radiology Data Radiology results: report reviewed - Medical Decision Making Patient is 54-year-old female with history of seizure and diabetes. Patient lives in a correction. Patient brought to the emergency room via EMS for evaluation of dizziness started today. Patient stated that she was given medicine last night that she does not know and she think this is what caused her dizziness. Patient stated that she went to the bathroom she got dizzy and fell and hit the couch on the back of her head. She stated that she still feels dizzy and she feels the room is spinning. Patient denied any chest pain or shortness of breath. No weakness numbness or tingling sensation. No bowel or bladder incontinence. Patient received meclizine. Patient remained stable in the ER. Labs reviewed and is unremarkable. EKG is negative for acute finding. CT brain is unremarkable. At this moment there is no clinical or radiological evidence of stroke. Patient given prescription for meclizine and advised to follow-up with her primary care physician in the next 2 to 3 days and to return to the ER if she develop any new symptoms Critical care attestation.: If time is entered above; I have spent that time in minutes in the direct care of this critically ill patient, excluding procedure time. ED Disposition Clinical Impression: Dizziness Disposition: DC-01 TO HOME OR SELFCARE Is pt being admited?: No Condition: Stable Instructions: Dizziness (ED), Vertigo (ED) Referrals: PRIMARY CARE, [Primary Care Provider] - 3-5 Days
[2019-07-04 10:21] LABS: Bacteria,Urine 1+ /HPF (Negative); Bilirubin,Urine NEG (Negative); Blood,Urine SM (Negative); Color,Urine Yellow (Yellow); Mucus,Urine FEW /HPF; Protein,Urine <15 mg/dL mg/dL (Negative); Urobilinogen,Urine < 2.0 mg/dL (<2.0)
[2019-07-04 10:43] LABS: Basophils # (Auto) 0.1 K/mm3 (0.0-0.1); Basophils % (Auto) 0.7 % (0.0-1.8); Eosinophils # (Auto) 0.1 K/mm3 (0.0-0.4); Eosinophils % (Auto) 1.5 % (0.0-4.3); Hematocrit 38.6 % (30.3-42.9); Hemoglobin 13.5 gm/dl (10.1-14.3); Lymphocytes # (Auto) 1.5 K/mm3 (1.2-5.4); Lymphocytes % (Auto) 19.4 % (13.4-35.0); Mean Corpuscular HGB Conc 35 % (30-34); Mean Corpuscular Volume 97 fl (79-97); Monocytes # (Auto) 0.5 K/mm3 (0.0-0.8); Monocytes % (Auto) 6.4 % (0.0-7.3); Platelet Count 230 K/mm3 (140-440); Red Cell Distribution Width 13.2 % (13.2-15.2)
--- NOTE | 2019-07-04 10:43 | Cat Scan Report ---
Head CT without intravenous contrast INDICATION: Closed head trauma today COMPARISON: 11/08/2018 FINDINGS: The ventricles are normal in size and position. No hemorrhage or extra-axial fluid collecti on. No edema or mass effect. No focal infarct seen. Portions of the sinuses visualized are clear. No skull fracture identified. IMPRESSION: Negative head CT Automated exposure control was utilized to diminish radiation dose Signer Name: Eulogio Lawrence MD Signed: 07/04/2019 10:38 AM Workstation Name: [id number]
[2019-07-04 11:01] LABS: BUN/Creatinine Ratio 23; Blood Urea Nitrogen 28 mg/dL (7-17); Calcium 9.2 mg/dL (8.4-10.2); Hemolysis Index 3
[2019-07-04 11:04] LABS: Alanine Aminotransferase 26 units/L (7-56); Albumin 4.3 g/dL (3.9-5)
[2019-07-04 11:12] LABS: Bilirubin,Direct < 0.2 mg/dL (0-0.2)
[2019-07-04 13:58] VITALS: BP 136/80
== END 2019-07-04 12:43 | disposition home or self-care (01) ==
LOC: ED 09:12
DX: R42 Dizziness and giddiness (principal); E11.9 Type 2 diabetes mellitus without complications; F17.200 Nicotine dependence, unspecified, uncomplicated
CPT/HCPCS: 36415; 70450; 80048; 80076; 81001; 84484; 85025; 93005; 93010; 99284